=== PATIENT | male | born 1935 | race Caucasian/White ===

== ENCOUNTER 2023-07-02 21:19 | Inpatient (IN) | payer MEDICARE, SELFPAY ==
[2023-07-02 19:29] VITALS: BP 160/101
[2023-07-02 19:41] VITALS: BMI 22.5
--- NOTE | 2023-07-02 19:47 | ED.GENMED ---
History of Present Illness
General
Chief Complaint: Weakness
Source: patient and family
Time Seen by Provider: 07/02/23 19:40
Travel History
Have you had any contact with someone who has COVID-19?: No
Do you have any symptoms of coronavirus? Fever > 100 degrees, chills, cough, shortness of breath, sore throat, loss of taste or smell, muscle aches, or headache?: No
History of Present Illness
History of Present Illness:
88-year-old male presenting to the ER from home with EMS for gradually worsening weakness, fatigue, today did not eat or drink anything and family concern for the patient's wellbeing. Patient notes that over the last 24 hours he has also had very
loose stool. Daughter who is present with the patient notes that for a few days patient had also been taking some Mucinex for some congestion as well as a mild cough. Daughter reports she was sick with COVID about 4 weeks ago but all family
members were tested and everybody else was negative. Patient denies any known fevers, chills, rigors, nausea, vomiting, abdominal pain, other URI-like symptoms, urinary symptoms or any other concerns. Patient last had blood work here in May
with a creatinine of slightly less than 2 which was high for the patient. Follows with nephrology here but has not seen them in 'a while'.
Past History
Past History
ED Past Medical History: HTN (Diagnosed one week ago and started blood pressure medication but does not know which one), Renal failure and Other (Urinary retention with chronic Rodas catheter. Takes finasteride.)
ED Past Surgical History: Other
Social History
Tobacco: Non-smoker
Alcohol: Daily (1 or 2 beers)
Drug: None
Personal:
Living: with family
Review of Systems
Review of Systems
All Other Systems: ROS reviewed and negative except as documented in HPI and ROS
Phy Exam
Physical Exam
Physical Exam:
GENERAL: Alert , in no apparent distress at rest but very weak with any attempted movement and needs significant support to hold himself up in bed
EYE: clear conjunctiva b/l
HEAD: NCAT
ENT: o/p clr, dry mucous membranes, lips cracked
CARDIAC: Mildly tachycardic rate and rhythm
LUNGS: Clear breath sounds bilaterally, no acute respiratory distress, no wheezes/rales/rhonchi
ABDOMEN: Soft, without focal tenderness, no r/g, no cvat
NEUROLOGICAL: Alert and oriented
SKIN: Warm and dry, skin intact.
MUSCULOSKELETAL: No edema, well perfused.
PSYCH: Normal and appropriate interaction.
Scores
Heart Failure Risk
Heart Failure Risk Score: Not Applicable
Heart Score for Chest Pain Patients
STEMI patient?: Not applicable
Withdrawal Assessment of Alcohol
Withdrawal Assessment Completed?: Not applicable
Course
Orders/Labs/Results
Orders:
Orders
07/02/23 19:45
0.9% Sodium Chloride 1000 ml [Nss] 1,000 ml IV BOLUS
07/02/23 19:46
Electrocardiogram (*1) Urgent
Reason for Study: Fatigue / Weakness
EKG- Treatment ONCE
07/02/23 19:52
COVID-19 Antigen Urgent
Source: Nasal Swab
Complete Blood Count/With Diff Urgent
Comprehensive Metabolic Panel Urgent
Lactic Acid Q4H
Comment: CANCEL 2nd LACTIC ACID IF 1st LACTIC ACID IS LESS THAN 2
Magnesium Urgent
Troponin I Urgent
Blood Culture Q30M
DENILSON Source: Blood/Venous
Specimen Description:
Influenza A+B Rapid Molecular Urgent
DENILSON Source: Nasal Swab
Specimen Description:
07/02/23 20:09
Blood Culture Q30M
DENILSON Source: Blood/Venous
Specimen Description:
07/02/23 20:15
CR Chest Portable - 1 View Urgent
Comment:
Reason For Exam: weakness, mild cough, leukocytosis
Reason Study Needs to be Portable: Unable to Transport
07/02/23 20:20
0.9% Sodium Chloride 1000 ml [Nss] 1,100 ml IV NOW STA
07/02/23 20:32
Piperacillin/Tazo 4.5 Gram [Zosyn] 4.5 gram in 100 ml IV NOW
07/02/23 20:54
Rodas Catheter [Catheter- Indwelling] As Directed
Reason for insertion: Chronic Rodas on Admit
07/02/23 20:[address] Non Medication Order As Directed
Physician Order: rodas exchange
Above order entered?: Yes
07/02/23 21:06
Admit/Transfer Patient As Directed
Co-Sign Provider:
Level of Care: Inpatient admission
Assign to:: Telemetry
Physician / Group: Kareem/hospitalist
Diagnosis: MILTON on CKD
Reason for Telemetry: Arrhythmia
Date to Stop Telemetry: 07/05/23
Time to Stop Telemetry: 11:00
Reason for Hospitalization: MILTON on CKD
Expected length of stay greater than two midnights?: Yes
ELOS- Estimated Length of Stay in days: 3
I certify the patient meets the requirements for IP care: Yes
07/02/23 21:07
Code Status As Directed
Resuscitation Status: Full Code
07/02/23 21:36
Urinalysis Reflex To Culture Urgent
Date Specimen was Collected: 07/02/23
Time Specimen was Collected: 19:47
Urine Microscopic Reflex Cult Urgent
Urine Culture Urgent
DENILSON Source: U
Specimen Description:
Date Specimen was Collected: 07/02/23
Time Specimen was Collected: 19:47
0.9% Sodium Chloride 1000 ml [Nss] 1,000 ml IV 120 mls/hr
Acetaminophen [Tylenol] 650 mg PO Q4HPRN PRN
HydrALAZINE [Apresoline] 10 mg IV Q4HPRN PRN
07/02/23 21:36
NEPHROLOGY CONSULT Routine
Consulting Provider: Tamia Richards
Was physician already notified: Yes
C DIFF [C difficile Antigen & Toxins] Routine
DENILSON Source: Feces/Stool
Specimen Description:
MRSA Screen Routine
DENILSON Source: Nose
Specimen Description:
Norovirus by PCR Routine
DENILSON Source: Feces/Stool
Specimen Description:
Stool Culture Routine
DENILSON Source: Feces/Stool
Specimen Description:
Activity As Directed
Activity Level: As Tolerated
Vital Signs As Directed
Frequency: Per unit guidelines
DX Deep Vein Thrombosis Video Routine
07/02/23 22:00
MetroNIDAZOLE 500 MG/100 ML [Flagyl 500 mg] 100 ml IV Q8H
07/03/23 00:57
Lactic Acid Q4H
Comment: CANCEL 2nd LACTIC ACID IF 1st LACTIC ACID IS LESS THAN 2
07/03/23 02:15
CT Abd/pelvis Wo Iv Cont Urgent
Comment: Oral contrast only
Reason For Exam: Right lower quadrant abdominal pain
07/03/23 04:00
Cefepime HCl [Maxipime] 1,000 mg IV Q24H
07/03/23 07:44
Lactic Acid IN AM
07/03/23 08:00
Heparin 5,000 units SC Q12
07/03/23 09:00
US Renal With Bladder Routine
Reason For Exam: MILTON, decreased urine output
07/05/23 11:00
DC Protocol for Telemetry ONCE
Abnormal Lab Results
07/02/23
19:52
WBC 14.0 H 10^3/uL
(4.8-10.8)
MCHC 32.9 L g/dL
(33.0-37.0)
Abs Immat Gran (auto) 0.1 H 10^3/uL
(0-0.05)
Absolute Neuts (auto) 13.3 H 10^3/uL
(1.4-6.5)
Absolute Lymphs (auto) 0.2 L 10^3/uL
(1.2-3.4)
Neutrophils % 94.6 H %
(42.2-75.2)
Lymphocytes % 1.3 L %
(20.5-51.1)
Sodium 134 L mmol/L
(135-145)
Carbon Dioxide 16 L mmol/L
(22-30)
BUN 59 H mg/dl
(9-20)
Creatinine 4.2 H* mg/dL
(0.7-1.3)
Glucose 116 H mg/dl
(70-99)
Lactic Acid 4.3 H* mmol/L
(0.7-2.0)
Total Bilirubin 1.6 H mg/dl
(0.2-1.3)
Troponin I 0.048 H* ng/ml
Total Protein 5.9 L g/dl
(6.3-8.2)
Albumin 3.3 L g/dl
(3.5-5.0)
07/02/23 19:52
07/02/23 19:52
Vital Signs
Initial and Last Documented VS:
Initial Vital Signs
Temp Pulse Resp BP Pulse Ox
97.5 F 109 20 160/101 94
07/02/23 19:29 07/02/23 19:29 07/02/23 19:29 07/02/23 19:29 07/02/23 19:29
Last Documented Vital Signs
Temp Pulse Resp BP Pulse Ox
97.7 F 74 18 95/61 92
07/03/23 15:20 07/03/23 15:20 07/03/23 15:20 07/03/23 15:20 07/03/23 15:20
MDM/Problems Addressed
Differential Diagnosis Includes:
Electrolyte disturbance, anemia, viral syndrome, worsening renal function
MDM/Problems Addressed:
88-year-old male presenting the emergency department for gradually worsening weakness over the last few days, today started to have some very loose stool, few days of URI-like symptoms with mild cough and nasal congestion. Arrives to the emergency
department little bit hypertensive but tachycardic. Oxygen saturation between 93 and 94% on room air but no obvious respiratory distress. Will check labs, urine, COVID swab. 1 L IV fluids ordered as patient has not eaten or drank anything in exam
seems to be consistent with some component of dehydration. I do anticipate admission.
Chronic conditions affecting care: Kidney disease
*Pulse Oximetry
Patient hypoxic: no
*EKG
Interpreted by ED Provider?: Yes
Comparison EKG: no changes
Heart Rate: 96
Rate: normal
Rhythm: sinus
QRS Pattern: right bundle branch block
Ischemia: no ischemia
*Pacu Rn Interpretation
Rate: tachycardiac
Rhythm: sinus
*Critical Care Note
Total Time (30-74mins, 75-104mins- exclusive of procedures): 30
comment:
Critical care statement: A total of 30 minutes of critical care time was provided for this patient. This includes management of unstable vital signs, evaluation of the patient at bedside, reviewing the patient's pertinent medical records, discussion
with consultants, review of old EKGs and review of pertinent medical records. This time with separate from time utilized to perform the aforementioned documented procedures
Data Reviewed
Review of Other/Old Records Reveals: Labs
Source: patient and family
Patient Management
Discussion with other providers: Hospitalist and Social Services Director
Escalation/DeEscalation of care consider admission/obs:
Patient's labs returning and are significantly abnormal. He is a leukocytosis of 14,000 with a leftward shift. Bicarb 16, BUN 59 and creatinine 4.2. Lactic acid 4.3. Troponin is mildly bumped but I suspect this is due to patient's renal
function. Sepsis fluid bolus was added to the additional 1 L fluids patient had already been given. Broad-spectrum vancomycin and Zosyn were ordered for possible infectious etiology. Chest x-ray was reviewed and there does not appear to be any
obvious infiltrates or consolidations. Hospitalist team and nephrology were notified. Hospitalist accepts for continued evaluation and treatment.
ED Attending Note
-
Portions of this chart may have been created with voice recognition software.� Occasional wrong word or��sound alike� substitutions may have occurred due to the inherent limitations of voice recognition software.
Discharge Plan
Departure
Patient Disposition: Admit
Date of Disposition: 07/02/23
Time of Disposition: 20:35
Presentation/result/management discussed w/ accepting MD/DO: Hospitalist
Discharge Problem:
Sepsis, MILTON (acute kidney injury), Generalized weakness
Interventions
Interventions:
*Risk Screen - Suicide Last Done: 07/02/23 22:17
*General Assessment Last Done: 07/02/23 19:29
*Neglect/Abuse Screening Last Done: 07/02/23 19:29
ED- Fall Risk Assessment Last Done: 07/02/23 22:12
*ED COVID-19 Vaccine History Last Done: 07/02/23 22:17
*Nursing Disposition Last Done: 07/02/23 22:12
ED- Cardiac Assessment Last Done: 07/02/23 19:42
ED- Neurological Assessment Last Done: 07/02/23 19:42
ED- Pulmonary Assessment Last Done: 07/02/23 19:42
Discharge Date and Time
Discharge Date/Time: 07/02/23 22:14
[2023-07-02 20:00] VITALS: BP 109/70
[2023-07-02] MEDS: NSS 1000 IV ×2 (20:00→21:59)
[2023-07-02 20:07] LABS: % Basophils 0.2 % (0-2); % Immature Granulocytes 0.5 % (0-0.5); % Lymphocytes 1.3 % (20.5-51.1); % Monocytes 3.4 % (1.7-9.3); % Neutrophils 94.6 % (42.2-75.2); Absolute Immature Granulocytes 0.1 10^3/uL (0-0.05); Absolute Lymphocytes 0.2 10^3/uL (1.2-3.4); Absolute Monocytes 0.5 10^3/uL (0.1-0.6); Absolute Neutrophils 13.3 10^3/uL (1.4-6.5); Hematocrit 45.6 % (39.0-52.0); Mean Corp Hgb Conc. 32.9 g/dL (33.0-37.0); Mean Corpuscular Hgb 29.9 pg (27.0-31.0); Nucleated Red Blood Cells % 0 % (-); Platelet Count 174 10^3/uL (130-400); Red Blood Cell Count 5.01 10^6/uL (4.70-6.10); Red Cell Dist. Width 14.3 % (11.5-14.5)
[2023-07-02 20:20] LABS: Lactic Acid 4.3 mmol/L (0.7-2.0)
[2023-07-02 20:23] LABS: ALT (SGPT) 38 U/L (0-50); AST (SGOT) 35 U/L (17-59); Albumin 3.3 g/dl (3.5-5.0); Alkaline Phosphatase 63 U/L (38-126); Blood Urea Nitrogen 59 mg/dl (9-20); Calcium 8.7 mg/dl (8.4-10.2); Carbon Dioxide 16 mmol/L (22-30); Chloride 105 mmol/L (98-107); Estimated Creatinine Clearance 12 ml/min; Glucose 116 mg/dl (70-99); Potassium 4.9 mmol/L (3.5-5.1); Sodium 134 mmol/L (135-145); Total Bilirubin 1.6 mg/dl (0.2-1.3); Total Protein 5.9 g/dl (6.3-8.2); eGFR 12.86
[2023-07-02 20:32] LABS: Troponin I 0.048 ng/ml
[2023-07-02 20:34] LABS: COVID-19 Antigen Negative (Negative)
--- NOTE | 2023-07-02 20:36 | HPS.HSE ---
Addendum entered and electronically signed by Rosalina Serna MD 07/02/23 22:32:
Will start clear liquid diet instead of low-cholesterol due to patient's right lower quadrant abdominal pain.
Pending CT abdomen pelvis with oral contrast
Original Note:
Family Physician
-
Family Physician:
Chief Complaint
-
generalized weakness, poor p.o. intake, and clinical dehydration.
History of Present Illness
HPI: 88-year-old male PMH HTN, CKD, chronic Flanagan for urinary retention, p/w generalized weakness, poor p.o. intake, and clinical dehydration.
Apparently he also complained of mild cough/congestion for several days. He has noticed diarrhea for the past 2 days, and right upper quadrant abdominal pain on palpation.
The patient has chronic Flanagan on admission.
He denies to nausea/vomiting, fever/chills, chest pain/shortness of breath, etc.
Patient's last blood work in May noted SCr at 1.9.�He follows with nephrology but has not seen them in 'a while'.
Medical History
Past Medical History
Past Medical History: Reports Other
Additional Past Medical History:
HTN, CKD, chronic Flanagan for urinary retention
Past Surgical History: Reports Other
Additional Past Surgical History:
hernia surgery in distant past
Social History
Tobacco: Non-smoker
Alcohol: Occasional (1-2 beer every night)
Living: With Family (daughter )
Family History
Family History: Not pertinent
Allergies / Home Medications
Allergies reflects when Allergies were last updated in [facility].
Home Medications with original date entered in [facility]
Allergy/Medication List:
Allergies
Allergy/AdvReac Type Severity Reaction Status Date / Time
NKA - No Known Allergies Allergy Unknown Unknown Uncoded 07/02/23 20:40
Home Medications
dextromethorphan-guaifenesin ER 60 mg-1,200 mg tab,extend release,12hr (Mucinex DM) 1 tab PO DAILYPRN PRN congestion 07/02/23
Review of Systems
-
Constitutional: Reports See HPI and Fatigue; Denies Fever
Abdomen/GI: Reports See HPI, Abdominal Pain (RLQ) and Diarrhea
: Reports Flanagan
Physical Exam
Vital Signs
Vital Signs
Temp Pulse Resp BP Pulse Ox
36.4 C 112 28 160/101 93
07/02/23 19:29 07/02/23 19:45 07/02/23 19:45 07/02/23 19:29 07/02/23 19:45
Physical Exam
General: Well Developed, Well Nourished, No Apparent Distress, Comfortable and Conversant
HEENT: NormoCephalic, Moist mucous membranes and Atraumatic
Respiratory: Clear and Non Labored Respirations; No Accessory Resp Muscle Use
Cardiac: S1/S2 and Regular Rhythm; No Murmur or Rub
GI: Soft, Tender (RLQ) and Distended; No Organomegaly
Rectal: Deferred by Provider
Musculoskeletal: No Clubbing, No Cyanosis and No Edema
Skin: No Rash
Neuro: Awake
Psych: Calm and Intact Judgment/Insight
Laboratory Results
-
07/02/23 19:52
07/02/23 19:52
Laboratory Results
Lactic Acid 4.3 mmol/L (0.7-2.0) H* 07/02/23 19:52
Total Bilirubin 1.6 mg/dl (0.2-1.3) H 07/02/23 19:52
AST 35 U/L (17-59) 07/02/23 19:52
ALT 38 U/L (0-50) 07/02/23 19:52
Alkaline Phosphatase 63 U/L (38-126) 07/02/23 19:52
Troponin I 0.048 ng/ml H* 07/02/23 19:52
Data Reviewed
-
Lab Data: Labs Reviewed by me
Impression/Plan
-
HPI: 88-year-old male PMH HTN, CKD, chronic Flanagan for urinary retention, p/w generalized weakness, poor p.o. intake, and clinical dehydration.
Apparently he also complained of mild cough/congestion for several days. He has noticed diarrhea for the past 2 days, and right upper quadrant abdominal pain on palpation.
The patient has chronic Flanagan on admission.
He denies to nausea/vomiting, fever/chills, chest pain/shortness of breath, etc.
Patient's last blood work in May noted SCr at 1.9.�He follows with nephrology but has not seen them in 'a while'.
He was admitted for presumed sepsis and MILTON.
Flanagan to be exchanged in ER.
A/P:
# generalized weakness, anorexia and clinical dehydration with prerenal MILTON
# CKD stage 4
# Chronic Flanagan on admission for urinary retention
SCr 4.3 from baseline ~1.9
s/p 2100cc NSS bolus, cont maintenance IVF
check kidney US
Flanagan to be exchanged in ER
Renal CS
# Lactic acidosis present on admission, with concern for sepsis POA (unclear source)
# RLQ Abd pain
Check CT AP with oral contrast only (No IV contrast)
Follow CXR formal report, appears NAD on my view
Follow blood cultures
Check stool culture, C. difficile, norovirus for reported diarrhea prior to admission
follow UA reflex culture
Flanagan to be exchanged in ER
Check MRSA screen
Status post Vanco Zosyn in ER, continue cefepime and add Flagyl
Follow repeat lactic acid level
# Essential hypertension
Currently hypotensive
IV hydralazine as needed
DVT prophylaxis: Heparin subcu
Full code
[2023-07-02] MEDS: NSS 1000 ML IV (20:47)
[2023-07-02 21:00] VITALS: BP 119/47
[2023-07-02] MEDS: ZOSYN 100 IV (21:00)
[2023-07-02 21:45] LABS: Urine Albumin Trace (Neg - Trace); Urine Bilirubin Negative (Negative); Urine Character Slightly Cloudy (Clear); Urine Color Yellow; Urine Glucose Negative (Negative); Urine Ketone Negative (Negative); Urine Leukocyte 2+ (Negative); Urine Nitrite Negative (Negative); Urine Occult Blood 3+ (Negative); Urine Urobilinogen Negative (Neg - 1+)
[2023-07-02 21:55] LABS: Urine Bacteria Many (Negative); Urine Triple Phosphate Crystal Present
[2023-07-02 22:00] VITALS: BP 97/61
[2023-07-02 22:41] VITALS: BP 132/60
[2023-07-02 22:44] VITALS: BMI 21.3
[2023-07-02] MEDS: VANCOCIN 300 ML IV (23:50)
[2023-07-02] MEDS: VANCOCIN 300 MG IV (23:50)
[2023-07-03] VITALS (8 sets, daily range): BP systolic 87–112; BP diastolic 55–79
[2023-07-03] MEDS: OMNIPAQUE 50 ML PO
[2023-07-03 01:22] LABS: Lactic Acid 2.1 mmol/L (0.7-2.0)
[2023-07-03] MEDS: FLAGYL 500 MG 100 IV ×3 (02:12→17:44)
[2023-07-03] MEDS: MAXIPIME 1000 MG IV (04:00)
[2023-07-03] MEDS: STERILE WATER FOR INJECTION 10 ML IV (04:01)
--- NOTE | 2023-07-03 04:47 | PTCARENOTE ---
Pt admitted to the unit from ED. Pt transferred from the stretcher to the bed with assist x 1 . Patient scooted over Patient is AAXO3. VS: T:97.4, hr 98, BP 112/62, resps 20 93% on RA . Pt oriented to room with call barajas in reach. Plan of care
ongoing.
--- NOTE | 2023-07-03 04:50 | PTCARENOTE ---
1200 Patient started to drinking for CT scan. Patient tolerating well. [address] SCAN. Patient tolerated well. 0220 Patient back to room 420. Patient oriented back to room . Will continue to monitor patient .
[2023-07-03] MEDS: HEPARIN 5000 UNITS SC (08:07)
[2023-07-03] MEDS: NSS 1000 IV (08:08)
[2023-07-03 08:12] LABS: Lactic Acid 1.1 mmol/L (0.7-2.0)
[2023-07-03 08:48] LABS: Hematocrit 33.4 % (39.0-52.0); Hemoglobin 11.4 g/dL (13.0-18.0); Mean Corp Hgb Conc. 34.1 g/dL (33.0-37.0); Mean Corpuscular Hgb 30.3 pg (27.0-31.0); Mean Corpuscular Volume 88.8 fL (80.0-94.0); Mean Platelet Volume 10.1 fL (7.4-10.4); Platelet Count 120 10^3/uL (130-400); Red Blood Cell Count 3.76 10^6/uL (4.70-6.10); Red Cell Dist. Width 14.3 % (11.5-14.5); White Blood Cell Count 8.5 10^3/uL (4.8-10.8)
--- NOTE | 2023-07-03 09:39 | W.PN.HOSP.TC ---
Today's Communication/Plan
-
Transfer to IVU
Cardiology consult
Urology consult
Rate control
Continue antibiotics
Assessment / Plan
Assessment / Plan
Gen-AAOx3, NAD
HEENT-NC, AT, anicteric, clear oral mm
Neck-supple
CV-irregular, tachy, no murmurs
Lungs-clear B/L
Abd-soft, NT, ND
Ext-no edema
Musculoskeletal-no cyanosis, clubbing
Skin-warm and dry
Neuro-grossly non-focal
Psych-calm, cooperative
New diagnosis rapid atrial fibrillation -hypotensive currently. Will give a small IV fluid bolus, IV metoprolol, start oral metoprolol, consult cardiology. Transfer to IVU. Check TSH.
MILTON on CKD 3b - likely due to sepsis. Creatinine coming down, 3.4 today. Baseline appears to be around 1.9.
Sepsis -possibly due to urinary source. Cultures pending. Continue empiric antibiotics. Blood cultures show gram-negative bacilli. Leukocytosis improved. Lactic acidosis improved.
CT scan does show moderate to severe hydronephrosis left greater than right kidneys. Moderate perinephric stranding bilaterally. No intrarenal calcifications noted. Severe prostatic enlargement noted. Abnormal urinary bladder wall thickening.
Will consult urology.
Elevated troponin -likely non-SC troponin elevation due to sepsis. Recheck troponin today. Patient has no symptoms.
Hyponatremia -sodium stable at 134. Possibly hypovolemic in nature. Check urine studies.
Acute thrombocytopenia - possibly due to sepsis. Monitor for now.
Essential hypertension -currently hypotensive.
Chronic urinary retention -chronic Flanagan catheter
Dementia -unknown type.
Full code
Daughter Felicitas updated on the phone. All questions answered.
Anticipated Discharge: > 48 hours
Subjective/Interval History
-
Date of Service: July 03, 2023
Patient seen and examined. Feels fine. No complaints.
Objective Data
-
Labs:
Laboratory Results
07/03/23 07/03/23
07:45 08:24
WBC Cancelled 8.5
Hgb Cancelled 11.4 L D
Hct Cancelled 33.4 L
Plt Count Cancelled 120 L D
Sodium Cancelled Pending
Potassium Cancelled Pending
Chloride Cancelled Pending
Carbon Dioxide Cancelled Pending
BUN Cancelled Pending
Creatinine Cancelled Pending
Glucose Cancelled Pending
Calcium Cancelled Pending
Vital Signs:
Vital Signs
Temp Pulse Resp BP Pulse Ox
98.8 F 92 24 99/59 100
07/03/23 07:57 07/03/23 07:57 07/03/23 07:57 07/03/23 07:57 07/03/23 07:57
I&O
07/02/23 07/03/23 07/04/23
06:59 06:59 06:59
Output Total 500 / 500
Balance -500 / -500
Review of Systems
-
History Source: Patient
All other systems: Reviewed and negative
[2023-07-03 09:45] LABS: Blood Urea Nitrogen 67 mg/dl (9-20); Calcium 7.5 mg/dl (8.4-10.2); Carbon Dioxide 15 mmol/L (22-30); Chloride 108 mmol/L (98-107); Estimated Creatinine Clearance 14 ml/min; Glucose 93 mg/dl (70-99); Magnesium 1.7 mg/dl (1.6-2.3); Potassium 4.1 mmol/L (3.5-5.1); Sodium 134 mmol/L (135-145); eGFR 16.57
[2023-07-03] MEDS: NSS 250 IV (09:53)
[2023-07-03] MEDS: LOPRESSOR 5 MG IV (09:54)
[2023-07-03] MEDS: LOPRESSOR 25 MG PO ×2 (10:10→20:20)
--- NOTE | 2023-07-03 10:29 | CON.CAR ---
Addendum entered and electronically signed by Sunni Schuster MD 07/03/23 13:46:
I saw and examined the patient.
The END FRAZER's note was reviewed and I agree with the note.
Comment: 88-year-old man with hypertension, CKD and chronic Flanagan presented with weakness and diarrhea. He has been found to have gram-negative rods in his blood and being treated for a UTI. He was noted to go into Afib with RVR and relative
hypotension. He has no sense of arrhythmia, cp or sob. He has an irreg rate and rhythm with rapid rates, lungs CTA. Ext wwp. Given relative hypotension and clear onset, will start amiodarone for rhtythm control. Hgb drop noted will heme check
prudence, as may be hemodilution with IVF. Otherwise, would recommend anticoagulation for age and htn. Meanwhile when rates improved would recommend echo.
Will follow.
Original Note:
Consultation
Consultation Request
Date/Time Consultation Requested: 07/03/23 9:40a
Date/Time Consultation Performed: 07/03/23 10:05a
Requesting Provider: Dr. Ireland
Performing Provider: ROSSI Ruelas for Dr. Schuster
Reason for Consultation: new Afib
Medical History
-
Chief Complaint: RUQ pain/diarrhea
History of Present Illness:
Mr. Watts is an 88 yo male HTN, CKD, and chronic Flanagan for urinary retention, who presents to the ER with c/o weakness, diarrhea and RUQ pain with palpation. He lives with his daughter and he denies any complaints. He states not seeing his doctor
in probably 5-10 years. He is admitted to the hospitalist with UTI sepsis and MILTON with creatinine 4.2. We are consulted for new onset rapid Afib that began 07/03/23. He is asymptomatic and unaware of his irregular heart rate. EKG with Afib with
RVR 141 bpm, RBBB. Today he also has mild hypotension and is currently receiving IVF and IV Lopressor for rapid rates.
Past Medical History
Past Medical History: Other (as above)
Social History
Tobacco: Non-Smoker
Alcohol: Daily
Personal: (his lives in a alf)
Living: With Family (daughter)
Employment: Retired
Family History
Family History: Reviewed & Not Pertinent
Allergies / Home Medications
Allergy/AdvReac Type Severity Reaction Status Date / Time
No Known Allergies Allergy Unverified 07/02/23 21:56
Medication Instructions Recorded Confirmed Type
dextromethorphan-guaifenesin ER 60 1 tab PO DAILYPRN PRN congestion 07/02/23 07/02/23 History
mg-1,200 mg tab,extend
release,12hr (Mucinex DM)
Review of Systems
-
History Source: Patient
All other systems: Negative unless noted
Physical Exam
Vital Signs
Temp Pulse Resp BP Pulse Ox
98.8 F 160 18 93/59 100
07/03/23 07:57 07/03/23 09:35 07/03/23 09:35 07/03/23 09:35 07/03/23 07:57
Lab Results
07/03/23 08:24
07/03/23 08:24
Troponin I 0.048 ng/ml H* 07/02/23 19:52
Physical Exam
General: No Apparent Distress and Other (elderly, frail)
HEENT: Normocephalic
Respiratory: Clear and Non Labored Respirations
Cardiac: S1/S2 and Irregular Rhythm (tachycardia)
Breast: Deferred by me
GI: Soft, Non Tender, Non Distended and Normal Bowel Sounds
Rectal: Deferred by Provider
Genito-urinary: No Costovertebral Tender
Musculoskeletal: No Clubbing, No Cyanosis and No Edema
Skin: Warm and Dry
Neuro: AO x 3
Hematologic/Lymphatic: No Lymphadenopathy
Psych: Calm
Impression / Plan
-
Afib - new onset, rapid ventricular response.
- IV Lopressor just given for rate control.
- mild hypotension receiving IVF.
- unaware of irregular heart rhythm, denies symptoms.
- start IV Amiodarone bolus and drip.
- [id number] score is 3 (age, HTN), but with new anemia (4gram drop in hgb overnight), will hold off on OAC, check stools/follow CBC.
- check echo when heart rates improve.
Acute non-ischemic myocardial injury - troponin 0.048, 0.127.
- in the setting of acute MILTON, acute sepsis UTI.
- denies angina.
- check an echo when heart rates improve.
Sepsis UTI - acute.
- per hospitalist.
- chronic Flanagan for urinary retention.
MILTON - creatinine 4.2 on admit.
- renal u/s ordered.
- nephrology consulted.
HTN - not on meds at home.
- currently with soft BP and receiving IVF with rate slowing meds.
- continue to monitor.
Anemia/thrombocytopenia - new.
- 4 gram drop in hgb overnight.
- heme test stool.
- follow cbc.
Data Reviewed
-
EKG: Tracing Personally Visualized and interpreted (Afib with RVR 141 bpm, RBBB)
Radiology: Image Personally Visualized and interpreted (cxr: NAD)
CT Scan: Report Reviewed by me (abd/pelvis: b/l pleural effusions R>L, 7mm nodule right lung base, b/l hydronephrosis L>R)
Labs: Labs Reviewed by me
[2023-07-03] MEDS: CORDARONE 103 MG IV (10:57)
--- NOTE | 2023-07-03 11:01 | W.CON.NEPH ---
Consultation
-
Date/Time Consultation Requested: 07/02PM 21:36
Date/Time Consultation Performed: 07/03 11:05AM
Requesting Provider: Dr. Serna
Performing Provider: Tamia Richards
Reason for Consultation: MILTON on CKD
Medical History
-
Chief Complaint: MILTON
History of Present Illness:
Mr. Watts is an 88 YOM with PMH of HTN, CKD, urinary retention (with chronic rodas in place) who presents to the hospital for generalized weakness, poor PO intake and c/f dehydration. The patient is accompanied by his daughter who acts as historian
as patient has significant dementia. She states that he has not been feeling like his normal self for the past few days. States he is more tired, moving less and eating very little. The patient states that he had a mild cough/congestion for several
days. He has also noted diarrhea, RUQ abdominal pain. CT scan done showing moderate to severe hydronephrosis left greater than right.
Cr baseline of around 2. Patient of Dr. Yu, last seen 2020. 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
Past Medical History
HTN
CKD
intermittent hyponatremia
chronic Rodas for urinary retention
Past Medical History: HTN
Past Surgical History: Other (hernia surgery)
Social History
Tobacco: Non-Smoker
Alcohol: Daily (daughter states he drinks 4-5 beers/day and sometimes more)
Drug: None
Living: With Family
Family History
Family History: Not Pertinent
Allergies / Home Medications
Allergy/AdvReac Type Severity Reaction Status Date / Time
No Known Allergies Allergy Unverified 07/02/23 21:56
Medication Instructions Recorded Confirmed Type
dextromethorphan-guaifenesin ER 60 1 tab PO DAILYPRN PRN congestion 07/02/23 07/02/23 History
mg-1,200 mg tab,extend
release,12hr (Mucinex DM)
Review of Systems
-
Unable to obtain full review of systems at this time due to: Dementia
History Source: Patient and Family
All other systems: Negative unless noted
Constitutional: Fatigue
EENT: No Symptoms
Respiratory: No Symptoms
Cardiac: Chest Pain and Palpitations
Abdomen/GI: Abdominal Pain
: Other (rodas not changed for12 months)
Musculoskeletal: No Symptoms
Skin: No Symptoms
Neurological: Weakness
Endocrine: No Symptoms
Hematologic/Lymphatic: No Symptoms
Physical Exam
Vital Signs
Vital Signs
Temp Pulse Resp BP Pulse Ox
98.8 F 160 18 93/59 94
07/03/23 07:57 07/03/23 09:35 07/03/23 09:35 07/03/23 09:35 07/03/23 08:30
Lab Results
WBC 8.5 10^3/uL (4.8-10.8) 07/03/23 08:24
RBC 3.76 10^6/uL (4.70-6.10) L 07/03/23 08:24
Hgb 11.4 g/dL (13.0-18.0) L D 07/03/23 08:24
Hct 33.4 % (39.0-52.0) L 07/03/23 08:24
Plt Count 120 10^3/uL (130-400) L D 07/03/23 08:24
Sodium 134 mmol/L (135-145) L 07/03/23 08:24
Potassium 4.1 mmol/L (3.5-5.1) 07/03/23 08:24
Chloride 108 mmol/L (98-107) H 07/03/23 08:24
Carbon Dioxide 15 mmol/L (22-30) L 07/03/23 08:24
BUN 67 mg/dl (9-20) H 07/03/23 08:24
Creatinine 3.4 mg/dL (0.7-1.3) H 07/03/23 08:24
eGFR 16.57 07/03/23 08:24
Glucose 93 mg/dl (70-99) 07/03/23 08:24
Calcium 7.5 mg/dl (8.4-10.2) L 07/03/23 08:24
Albumin 3.3 g/dl (3.5-5.0) L 07/02/23 19:52
Physical Exam
General: Awake and Alert
HEENT: EOMI, Anicteric and Ear/Nose Intact
Respiratory: Wheezes
Cardiac: S1/S2
Breast: N/A
Abdomen: Soft and Other (tender to palpation in RUQ and RLQ)
Rectal: Deferred by Provider
Genito-urinary: No Costovertebral Tender and Clear Urine
Musculoskeletal: No Edema
Skin: No Rash, Warm and Dry
Neuro: Nonfocal/Grossly Intact
Hematologic/Lymphatic: No Cervical Lymphadenopathy
Psych: Appropriate
Assessment/Plan
-
Assessment:
MILTON on CKD (bl Cr 2)
NAGMA (previously HAGMA from [place])
HTN (now hypotensive)
chronic rodas for urinary retention
hydronephrosis
Lactic acidosis (resolved)
Sepsis unknown source
Plan:
- MILTON likely ATN from sepsis but cannot rule out post renal disease
- urology consult for worsening hydronephrosis and missed Rodas exchanges pending
- please continue fluid resuscitation as Cr improved from 4.2 --> 3.4 with fluids
- NAGMA persists, will initiate Na HCO3 fluids to assist
- obtain urine Na, urine Cl and urine K to assess if RTA (chronic rodas) vs. GI losses
- initiated NaHCO3 gtt at 100cc/hr
- chronic hyponatremia --> could be a component of tea and toast + beer potomania. monitor for now
Data Reviewed
-
Radiology: Image Personally Visualized and interpreted
CT Scan: Report Reviewed by me
Labs: Labs Reviewed by me
Old Records: Reviewed
[2023-07-03 11:06] LABS: Troponin I 0.127 ng/ml
[2023-07-03] MEDS: CORDARONE 518 MG IV (11:35)
--- NOTE | 2023-07-03 12:05 | CM ---
Patient seen bedside.
IA completed.
Patient lives with daughter and 3 grandchildren in a multi level home with 2 steps to enter.
Patient independent prior to admission without AD.
Patient does not drive.
VN in the past, unsure which agency.
Patient denies home care needs at this time.
PCP: dr Sharma
Pharmacy: [facility]
Plan: Home no needs anticipated, will continue to follow.
--- NOTE | 2023-07-03 12:13 | CON.MD ---
Consultation - Medical
-
see dictated note
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
rodas placed
did have cysto- bph and trabeculations- no tumor
discussed surgery- pt and family elected rodas
was exchanged monthly- but pt not seen since late 2021 in our office and he does not think the rodas has been changed since!
admitted with weakness/abd pain
cr up from baseline fo 2 to 4
new rodas was placed- adequate output of sonia urine
ct shows bilateral hydro down to bladder- no obvious mass- improved from study in 2019
plan
spoke to pt and daughter
continue rodas
ucx
track cr level- hopefully will improve with new rodas
start proscar
if cr fails to improve- would need percs if this intervention is desired
will follow
at time fo discharge will need outpt f/u to resume regular rodas exchanges
[2023-07-03] MEDS: SODIUM BICARBONATE 1150 MEQ IV (12:59)
[2023-07-03 13:28] LABS: Urine Potassium 53.4 mmol/L (30-90); Urine Sodium 32 mmol/L (30-90)
[2023-07-03 16:05] LABS: Hematocrit 38.4 % (39.0-52.0); Mean Corp Hgb Conc. 33.9 g/dL (33.0-37.0); Mean Corpuscular Hgb 30.1 pg (27.0-31.0); Mean Corpuscular Volume 88.9 fL (80.0-94.0); Platelet Count 150 10^3/uL (130-400); Red Blood Cell Count 4.32 10^6/uL (4.70-6.10); Red Cell Dist. Width 14.4 % (11.5-14.5); White Blood Cell Count 11.7 10^3/uL (4.8-10.8)
[2023-07-03 16:31] LABS: Troponin I 0.418 ng/ml
[2023-07-03 18:07] LABS: APTT 34.8 Sec (23.4-35.0)
[2023-07-03] MEDS: HEPARIN 4000 UNITS IV (20:20)
[2023-07-03] MEDS: HEPARIN 25000 UNITS/250 ML IV (20:21)
[2023-07-04] VITALS (11 sets, daily range): BP systolic 83–145; BP diastolic 46–125; BMI 21.3
--- NOTE | 2023-07-04 01:29 | PTCARENOTE ---
Received tsf from 4th floor at approx 18:50 into room 2243. Patient ambulated from stretcher to bed w/ standby assist. Tele monitor applied patient SR w/ BBBC, and occasional PACs. HR in the 60-70's at rest. During alarm review patient approximately
converted at 14:46 on the 4th floor. This RN obtained EKG which confirmed SR w/ right BBB. Patient oriented to self, and pleasantly confused/ forgetful at times. This RN reoriented patient multiple times to place and situation. Bed alarm active. IV
heparin gtt initiated, and currently infusing at 8ml/hr. Next ptt due at 02:30. IV Amiodarone gtt infusing at 16.7ml/hr. Left forearm IV site infiltrated, IV removed by RN. Old IV site marked to monitor. New IV site placed by this RN. VAT notified.
Patient had an episode of unmeasurable diarrhea. Sample collected and sent to lab. Stool heme positive. Flanagan draining sonia color urine w/ sediment. Call barajas within reach.
[2023-07-04] MEDS: SODIUM BICARBONATE 1150 MEQ IV ×3 (02:40→22:30)
[2023-07-04] MEDS: FLAGYL 500 MG 100 IV (02:40)
[2023-07-04 02:47] LABS: % Basophils 0.2 % (0-2); % Eosinophils 0.4 % (0-6); % Immature Granulocytes 0.5 % (0-0.5); % Lymphocytes 4.2 % (20.5-51.1); % Monocytes 3.9 % (1.7-9.3); % Neutrophils 90.8 % (42.2-75.2); Absolute Lymphocytes 0.4 10^3/uL (1.2-3.4); Absolute Monocytes 0.3 10^3/uL (0.1-0.6); Absolute Neutrophils 7.7 10^3/uL (1.4-6.5); Hematocrit 31.4 % (39.0-52.0); Hemoglobin 11.2 g/dL (13.0-18.0); Mean Corp Hgb Conc. 35.7 g/dL (33.0-37.0); Mean Corpuscular Hgb 30.3 pg (27.0-31.0); Mean Corpuscular Volume 84.9 fL (80.0-94.0); Nucleated Red Blood Cells % 0 % (-); Platelet Count 125 10^3/uL (130-400); White Blood Cell Count 8.5 10^3/uL (4.8-10.8)
[2023-07-04 02:58] LABS: APTT 39.9 Sec (23.4-35.0)
[2023-07-04 03:10] LABS: Troponin I 0.497 ng/ml
--- NOTE | 2023-07-04 03:21 | PTCARENOTE ---
Dayron RICHEY made aware of pts heme positive diarrhea. Hgb this AM 11.2. Patsy RICHEY aware of IV heparin gtt currently infusing. At approx 03:08 patient went back into Afib for 1 min, spontaneously CV, and then back into afib at 03:10. HR in
the 90-100's. Pt denies any chest pain. Call barajas in reach, bed alarm active.
[2023-07-04 03:24] LABS: ALT (SGPT) 12 U/L (0-50); AST (SGOT) 26 U/L (17-59); Albumin 1.9 g/dl (3.5-5.0); Alkaline Phosphatase 40 U/L (38-126); Blood Urea Nitrogen 72 mg/dl (9-20); Calcium 7.1 mg/dl (8.4-10.2); Carbon Dioxide 20 mmol/L (22-30); Chloride 104 mmol/L (98-107); Estimated Creatinine Clearance 17 ml/min; Glucose 104 mg/dl (70-99); Magnesium 1.8 mg/dl (1.6-2.3); Potassium 3.5 mmol/L (3.5-5.1); Sodium 132 mmol/L (135-145); Total Bilirubin 1.1 mg/dl (0.2-1.3); Total Protein 3.9 g/dl (6.3-8.2); eGFR 20.91
[2023-07-04] MEDS: MAXIPIME 1000 MG IV (04:49)
[2023-07-04] MEDS: STERILE WATER FOR INJECTION 10 ML IV (04:49)
--- NOTE | 2023-07-04 06:07 | W.PN.URO.CBU ---
Today's Communication / Plan
-
continue rodas and proscar
await ucx
Assessment / Plan
-
chronic urinary retention with bilateral hydro
acute on chronic renal insuff
suspected UTI- bacteremia
pt stable
cr declining toward baseline with new rodas
no sig hematuria- but is at risk with heparin drip- cardiology note originally stated no blood thinners- hgb has dropped- they will evaluate later today
continue proscar
await final cx results
eventual plan will be to resume regular outpt rodas exchanges
will follow
Diagnosis
-
Date of Service: July 04, 2023
-
Patient Diagnosis:
chronic urinary retention
ARF- likely post- obstrucive
bacteremia
Subjective
-
pt resting comfortably
urine sonia- good output
ucx pending- blood cx + for klebsiella
cr declining
now is on heparin drip- hgb has dropped
Objective
-
Vital Signs
Temp Pulse Resp BP Pulse Ox
98.3 F 61 22 92/46 96
07/04/23 02:38 07/04/23 02:00 07/04/23 02:38 07/04/23 02:37 07/04/23 02:38
Intake and Output
07/02/23 07/03/23 07/04/23
06:59 06:59 06:59
Intake Total 2556.4 / 2556.4
Output Total 500 / 500 650 / 650
Balance -500 / -500 1906.4 / 1906.4
Intake:
Oral fluids 960 / 960
IV fluids (Total) 1496.4 / 1496.4
Amiodarone 200.4 / 200.4
Heparin 96 / 96
Sterile Water For Injection 1200 / 1200
1000 ml 1,000 ml @ 100 mls/hr
IV .[id number] BAKARI with Sodium
Bicarbonate 150 Meq Rx#:
[id number]
IV piggybacks 100 / 100
Output:
Urine, Rodas 500 / 500 650 / 650
Other:
Number of unmeasured liquid
stools
Rectum 1
Laboratory Results
07/04/23 02:34
07/04/23 02:34
Review of Systems
-
Constitutional: Fatigue
Respiratory: No Symptoms
Cardiac: No Symptoms
Abdomen/GI: No Symptoms
Physical Exam
-
General - no acute distress
Abdomen - soft, non-tender
Genitalia - rodas in place
--- NOTE | 2023-07-04 07:39 | W.PN.HOSP.TC ---
Addendum entered and electronically signed by Zay Ireland DO 07/04/23 12:09:
Acute blood loss anemia -hemoglobin down to 11.2 this morning. Heme positive stools noted. Suspect subacute GI bleed. Anticoagulation on hold. Will consult GI.
Original Note:
Today's Communication/Plan
-
Add midodrine
Continue antibiotics
Await cultures
TSH
Assessment / Plan
Assessment / Plan
Gen-AAOx3, NAD
HEENT-NC, AT, anicteric, clear oral mm
Neck-supple
CV-irregular, tachy, no murmurs
Lungs-clear B/L
Abd-soft, NT, ND
Ext-no edema
Musculoskeletal-no cyanosis, clubbing
Skin-warm and dry
Neuro-grossly non-focal
Psych-calm, cooperative
Shock -unclear if septic shock versus other causes. Start midodrine.
New diagnosis rapid atrial fibrillation -now rate controlled but still relatively hypotensive. Currently on amiodarone, metoprolol, IV heparin. Cardiology following.
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 Creatinine coming down, 2.8 today. Baseline appears to be around 1.9. Await renal ultrasound.
Normal anion gap metabolic acidosis improving with bicarbonate therapy. Nephrology following.
Klebsiella sepsis -suspected to be due to UTI. Urine culture pending. Continue cefepime. Awaiting sensitivity. WBC count improved. Afebrile. Check repeat cultures.
CT scan does show moderate to severe hydronephrosis left greater than right kidneys. Moderate perinephric stranding bilaterally. No intrarenal calcifications noted. Severe prostatic enlargement noted. Abnormal urinary bladder wall thickening.
Urology following.
Elevated troponin -likely non-NV troponin elevation due to sepsis. Troponin is still trending up. He denies chest pain or shortness of breath.
Hyponatremia -sodium 132. Possibly hypovolemic in nature. Check urine studies.
Acute thrombocytopenia - possibly due to sepsis. Monitor for now.
Essential hypertension -currently hypotensive.
Chronic urinary retention -chronic Flanagan catheter
Dementia -unknown type.
Full code
Anticipated Discharge: > 48 hours
Subjective/Interval History
-
Date of Service: July 04, 2023
Patient seen and examined. No complaints.
Objective Data
-
Labs:
Laboratory Results
07/04/23 07/04/23
02:34 09:10
WBC 8.5
Hgb 11.2 L
Hct 31.4 L
Plt Count 125 L
APTT 39.9 H Pending
Sodium 132 L
Potassium 3.5
Chloride 104
Carbon Dioxide 20 L
BUN 72 H
Creatinine 2.8 H
Glucose 104 H
Calcium 7.1 L
Total Bilirubin 1.1
AST 26
ALT 12
Alkaline Phosphatase 40
Vital Signs:
Vital Signs
Temp Pulse Resp BP Pulse Ox
98.7 F 61 18 92/46 92
07/04/23 07:13 07/04/23 02:00 07/04/23 07:13 07/04/23 02:37 07/04/23 07:13
I&O
07/03/23 07/04/23 07/05/23
06:59 06:59 06:59
Intake Total 2556.4 / 2556.4
Output Total 500 / 500 1150 / 1150
Balance -500 / -500 1406.4 / 1406.4
Review of Systems
-
History Source: Patient
All other systems: Reviewed and negative
[2023-07-04] MEDS: ProAmatine 10 MG PO ×2 (09:01→13:23)
[2023-07-04] MEDS: LOPRESSOR 25 MG PO (09:03)
[2023-07-04] MEDS: PROSCAR 5 MG PO (09:03)
[2023-07-04 09:23] LABS: TSH 2.78 uIU/ml (0.47-4.68)
[2023-07-04 09:46] LABS: APTT 33.4 Sec (23.4-35.0)
--- NOTE | 2023-07-04 10:09 | W.PN.CD ---
Today's Communication / Plan
-
- Echocardiogram yesterday revealed normal cardiac function.
- Continue amiodarone drip.
- Will hold metoprolol tartrate 25 mg PO BID for now, given hypotension.
- Will discontinue heparin drip, given heme positive stool; decline in hemoglobin from 13.0 to 11.2 overnight.
- Continue midodrine for blood pressure support.
- Heme positive stool; recommend GI consultation.
Impression / Plan
-
Afib - new onset, rapid ventricular response.
- Echocardiogram yesterday revealed normal cardiac function.
- Continue amiodarone drip.
- Will hold metoprolol tartrate 25 mg PO BID for now, given hypotension.
- [id number] score is 3 (age, HTN), but with new anemia (4gram drop in hgb).
- Will discontinue heparin drip, given heme positive stool; decline in hemoglobin from 13.0 to 11.2 overnight.
Acute non-ischemic myocardial injury - troponin 0.048, 0.127.
- in the setting of acute MILTON, acute sepsis UTI.
- denies angina.
- check an echo when heart rates improve.
Sepsis UTI - acute.
- Management as per Hospitalist.
- Chronic Flanagan for urinary retention; Urology following.
MILTON - creatinine 4.2 on admit.
- Nephrology consulted.
HTN - not on meds at home.
-Continue midodrine for blood pressure support.
Anemia/thrombocytopenia - new.
-Heme positive stool; recommend GI consultation.
Physical Exam
Vital Signs/Labs
Vital Signs
Temp Pulse Resp BP Pulse Ox
98.7 F 103 18 91/63 92
07/04/23 07:13 07/04/23 08:00 07/04/23 07:13 07/04/23 09:01 07/04/23 08:53
07/03/23 07/04/23 07/05/23
06:59 06:59 06:59
Actual Weight 67.313 kg
07/04/23 02:34
07/04/23 02:34
APTT 33.4 Sec (23.4-35.0) 07/04/23 09:18
Magnesium 1.8 mg/dl (1.6-2.3) 07/04/23 02:34
TSH 2.78 uIU/ml (0.47-4.68) 07/04/23 02:34
LAB Results
07/02/23 07/03/23 07/03/23
19:52 10:14 15:59
Troponin I 0.048 H* 0.127 H* 0.418 H* D
07/04/23
02:34
Troponin I 0.497 H*
Physical Exam
Constitutional: No acute distress and Comfortable
EENT: Anicteric
Cardiovascular: Pedal edema is absent, Systolic murmur absent, Rhythm/rate is irregular and S1S2 is normal
Respiratory: Respiratory effort normal and Wheeze Present
GI: Soft
Neuro/Psych: Alert
Other: Skin (Warm, dry, intact)
Data Reviewed
-
Date of Service: July 04, 2023
EKG: Tracing Personally Visualized and interpreted (Telemetry: A-fib)
Echo: Report Reviewed by me (Normal LVEF)
Medical Tests (PFT, Pathology etc): Discussed with Nurse
Labs: Labs Reviewed by me
[2023-07-04 10:14] LABS: Troponin I 0.309 ng/ml
--- NOTE | 2023-07-04 11:14 | CM ---
Addendum entered by LISET Chirinos 07/05/23 14:53:
Additional information:
Pt. has [employer] for x8 hour shift for help at home. 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
Original Note:
CM following for DC planning needs.
Pt. transferred to IVU 07/03.
Reviewed initial assessment. Pt. comes from private home w/ dtr., 3 grandchildren. Pt. is reportedly functionally indep. at baseline w/ ADLs, mobiliity without the use of any assisted device.
Noted consult for monthly rodas changes.
Met w/ patient at bedside. He confirms initial assessment information. Some confusion noted in conversation; per discussion w/ RN-this is his baseline.
Call to dtrYarelis Brown. She confirms initial assessment information. She notes that patient is 'overly confident' in his functional abilities at home.
Discussed VN for rodas changes. She notes that patient has a chronic rodas. She would prefer to bring patient to the Dr. office. She notes that there are approx. 4-5 family members that help with this. It is most helpful, per daughter, to schedule
appointments well in advance for planning. She is not interested at this time in home RN for rodas changes.
When patient is medically able to participate, PT evaluation will be helpful to determine functional status and DC needs.
Will follow closely.
--- NOTE | 2023-07-04 13:01 | W.PN.NEPH.PH ---
Today's Communication / Plan
-
IV fluids provide
Assessment/Plan
-
Assessment:
MILTON on CKD (bl Cr 2)
NAGMA (previously HAGMA from [place])
HTN (now hypotensive)
chronic rodas for urinary retention
hydronephrosis
Lactic acidosis (resolved)
Sepsis unknown source:Klebsiella PNA
Plan:
- MILTON likely ATN from sepsis but cannot rule out post renal disease
- urology consult for worsening hydronephrosis and missed Rodas exchanges pending
- with fluid resuscitation Cr improved from 4.2 --> 3.4 and now down to 2.8, grossly nonoliguric >1 liter
-We will provide IV fluids another day
- NAGMA persists but improving on Na HCO3 fluids to assist
- obtained urine Na, urine Cl and urine K to assess if RTA (chronic rodas) vs. GI losses
- initiated NaHCO3 gtt at 100cc/hr
- chronic hyponatremia --> could be a component of tea and toast + beer potomania. monitor for now
-maintain midodrine for hypotension
-heparin gtt stopped due to heme positive stool
-Echo was normal
-Blood cultures with Klebsiella PNA
-
-
Date of Service: July 04, 2023
CC / HPI / ROS
-
Chief Complaint:
Acute kidney
History of Present Illness:
Creatinine down
Remains hemodynamically unstable on midodrine send IV fluid
Metabolic acidosis improving with alkaline IV fluid
Remains on amiodarone
Review of Systems:
Nonoliguric via Rodas
No weights recorded
No fevers
Heme positive stool
Labs
-
Labs:
WBC 8.5 10^3/uL (4.8-10.8) 07/04/23 02:34
RBC 3.70 10^6/uL (4.70-6.10) L 07/04/23 02:34
Hgb 11.2 g/dL (13.0-18.0) L 07/04/23 02:34
Hct 31.4 % (39.0-52.0) L 07/04/23 02:34
Plt Count 125 10^3/uL (130-400) L 07/04/23 02:34
Sodium 132 mmol/L (135-145) L 07/04/23 02:34
Potassium 3.5 mmol/L (3.5-5.1) 07/04/23 02:34
Chloride 104 mmol/L (98-107) 07/04/23 02:34
Carbon Dioxide 20 mmol/L (22-30) L 07/04/23 02:34
BUN 72 mg/dl (9-20) H 07/04/23 02:34
Creatinine 2.8 mg/dL (0.7-1.3) H 07/04/23 02:34
eGFR 20.91 07/04/23 02:34
Glucose 104 mg/dl (70-99) H 07/04/23 02:34
Calcium 7.1 mg/dl (8.4-10.2) L 07/04/23 02:34
Albumin 1.9 g/dl (3.5-5.0) L 07/04/23 02:34
Physical Exam
-
Vital Signs:
Vital Signs
Temp Pulse Resp BP Pulse Ox
98.3 F 103 20 91/63 93
07/04/23 12:15 07/04/23 08:00 07/04/23 12:15 07/04/23 09:01 07/04/23 12:15
Cardiovascular:: Regular rate and rhythm
Respiratory:: Bilateral: Coarse
Lung Excursion:: Normal
Abdomen:: Nontender
Bowel Sounds:: Normal
Extremity Edema:: None: Bilateral:
Rodas Catheter: Yes
[2023-07-04] MEDS: CORDARONE 518 MG IV (13:05)
--- NOTE | 2023-07-04 16:15 | CON.GI ---
Consultation
-
Date/Time Consultation Requested: 07/04/23 12:00pm
Date/Time Consultation Performed: 07/04/23 4:16pm
Requesting Provider: Zay Conteh
Performing Provider: Morteza Garcia
Reason for Consultation: Heme positive anemia
Medical History
Chief Complaint / HPI
Chief Complaint: Heme positive anemia
History of Present Illness:
Patient is an 80-year-old male who presents with weakness, cough, decreased by mouth intake. On admission he was noted be in acute renal failure with a creatinine of 4.2 and lactate was elevated at 4.3. He was admitted for urosepsis and blood
cultures came back positive for Klebsiella and urine culture positive for MSSA. On admission he was noted to be in A. fib with rapid ventricular rate and hypotension. Heparin drip was started. He is noted to have diarrhea that was brown but
tested heme positive. Hemoglobin dropped from 15 on admission to 11.2 so anticoagulation was stopped. He had colonoscopy in 2007 showed diverticulosis. No prior endoscopy. He denies NSAID usage.
Past Medical History
Past Medical History: HTN, Renal Failure and Other (Urinary retention with chronic Flanagan)
Past Surgical History: Other (hernia)
Social History
Tobacco: Non-Smoker
Alcohol: Occasional
Family History
Family History: Reviewed & Not Pertinent
Allergies / Home Medications
Allergy/AdvReac Type Severity Reaction Status Date / Time
No Known Allergies Allergy Unverified 07/02/23 21:56
Medication Instructions Recorded
dextromethorphan-guaifenesin ER 60 1 tab PO DAILYPRN PRN congestion 07/02/23
mg-1,200 mg tab,extend
release,12hr (Mucinex DM)
Review of Systems
-
All other systems: A 12 pt ROS was Negative except as stated above in HPI
Vital Signs
Temp Pulse Resp BP Pulse Ox
98.1 F 124 20 95/60 95
07/04/23 15:52 07/04/23 13:00 07/04/23 15:52 07/04/23 13:23 07/04/23 15:52
Physical Exam
Exam
General: No Apparent Distress
HEENT: Atraumatic
Respiratory: Non Labored Respirations
GI: Soft, Non Tender and Non Distended
Skin: Warm and Dry
Neuro: Alert
Psych: Calm
Results
WBC 8.5 10^3/uL (4.8-10.8) 07/04/23 02:34
Hgb 11.2 g/dL (13.0-18.0) L 07/04/23 02:34
Hct 31.4 % (39.0-52.0) L 07/04/23 02:34
MCV 84.9 fL (80.0-94.0) 07/04/23 02:34
Plt Count 125 10^3/uL (130-400) L 07/04/23 02:34
Absolute Neuts (auto) 7.7 10^3/uL (1.4-6.5) H 07/04/23 02:34
APTT 33.4 Sec (23.4-35.0) 07/04/23 09:18
Sodium 132 mmol/L (135-145) L 07/04/23 02:34
Potassium 3.5 mmol/L (3.5-5.1) 07/04/23 02:34
Chloride 104 mmol/L (98-107) 07/04/23 02:34
Carbon Dioxide 20 mmol/L (22-30) L 07/04/23 02:34
BUN 72 mg/dl (9-20) H 07/04/23 02:34
Creatinine 2.8 mg/dL (0.7-1.3) H 07/04/23 02:34
Calcium 7.1 mg/dl (8.4-10.2) L 07/04/23 02:34
Total Bilirubin 1.1 mg/dl (0.2-1.3) 07/04/23 02:34
AST 26 U/L (17-59) 07/04/23 02:34
ALT 12 U/L (0-50) 07/04/23 02:34
Alkaline Phosphatase 40 U/L (38-126) 07/04/23 02:34
Diagnostic Image Results:
Prior GI Procedures:
EGD:
Colonoscopy:
Assessment / Plan
-
Summary: 88yo male presents with weakness, cough, decreased PO intake. Elevated Cr 4.2 and lactate 4.3, admitted for urosepsis. BCx positive Klebsiella, UCx positive MSSA. After admission, noted to be in Afib/RVR with hypotension and heparin gtt
was started. Then Hgb dropped from 15 on admission 07/02 down to 11.2 on 07/04 so anticoagulation was stopped. Also having heme positive brown diarrhea. C diff negative. Colonoscopy 2007- diverticulosis.
07/03/23 CT AP- b/l pleural effusions. 7mm RLL nodule. B/L hydronephrosis, b/l hydroureter. Bladder wall thickening w stranding. Prostatomegaly. Small ascites. Small hiatal hernia. Mild distal esophageal thickening
Impression:
Urosepsis. Lactate 4.3 on admission down to normal 07/03 following resuscitation
Heme positive anemia. Drop in Hgb 15 (07/02) to 11.2 (07/04)
Diarrhea. C diff negative
Afib/RVR started on heparin gtt then stopped due to heme positive anemia
Elevated troponin due to acute non-ischemic myocardial injury
Recommendations:
No signs of active GI bleeding at this time
Continue to monitor Hgb and BMs
Protonix BID
He could have element of bowel ischemia with hypotension due to sepsis and Afib/RVR.
Abdomen currently benign, lactate normal
If Hgb stable and no signs of active GI bleed, could resume anticoagulation if that remains necessary for cardiac management
Will follow
-
-
Thank you for consultation and allowing me to participate in the patient's care. Please call the application developer GI physician during the after hours with any questions or concerns.
[2023-07-04] MEDS: ProAmatine PO (18:13)
--- NOTE | 2023-07-04 19:18 | PTCARENOTE ---
Pt very pleasant, oriented to himself and occasionally place. Heparin discontinued per after heme positive stool was reported, further liquid brown heme positive stool passed today. Pt seen by , plan for protonix. Telemetry
showed atrial fib at a rate @120 and brief episodes of sinus rhythm. Pt has been in consistent sinus rhythm @65 since 15:30 today. Amiodarone infusion continued as ordered, current infusion site without any sign of infiltration and pt denies any
discomfort, will monitor closely, hoping for early DC of amiodaone 07/05.. Pt OOB to chair and bedside commode with assist of 2. Pt is impulsive and unsteady , fall precautions in place including bed and chair alarms. Flanagan catheter draining cloudy
yellow urine.
[2023-07-04] MEDS: PROTONIX 40 MG PO (20:36)
[2023-07-04 22:58] LABS: 24 Hour Urine Total Volume Random mL; Chloride, Urine 36 mmol/L; Creatinine, Urine per Volume 106 mg/dL; Urine Collection Length Random hr
[2023-07-05] VITALS (11 sets, daily range): BP systolic 109–133; BP diastolic 53–91; PULSE 76–78; O2SAT 94–96
[2023-07-05 02:37] LABS: % Basophils 0.2 % (0-2); % Immature Granulocytes 0.5 % (0-0.5); % Lymphocytes 5.8 % (20.5-51.1); % Monocytes 4.8 % (1.7-9.3); % Neutrophils 86.7 % (42.2-75.2); Absolute Eosinophils 0.2 10^3/uL (0-0.7); Absolute Immature Granulocytes 0.1 10^3/uL (0-0.05); Absolute Lymphocytes 0.6 10^3/uL (1.2-3.4); Absolute Monocytes 0.5 10^3/uL (0.1-0.6); Absolute Neutrophils 8.5 10^3/uL (1.4-6.5); Hematocrit 31.9 % (39.0-52.0); Hemoglobin 11.3 g/dL (13.0-18.0); Mean Corp Hgb Conc. 35.4 g/dL (33.0-37.0); Mean Corpuscular Hgb 29.8 pg (27.0-31.0); Mean Corpuscular Volume 84.2 fL (80.0-94.0); Mean Platelet Volume 10.1 fL (7.4-10.4); Nucleated Red Blood Cells % 0 % (-); Platelet Count 146 10^3/uL (130-400); Red Blood Cell Count 3.79 10^6/uL (4.70-6.10); Red Cell Dist. Width 13.9 % (11.5-14.5); White Blood Cell Count 9.8 10^3/uL (4.8-10.8)
--- NOTE | 2023-07-05 02:47 | PTCARENOTE ---
Pt. OOB frequently to have liquid BM's, always a small amount. Sets bed alarm off, pleasant but very forgetful and disoriented to the fact that he's in the hospital. Was in NSR with frequent PAC's up until 147, then went back to A-fib (90's-low
100's). Amiodarone infusing as ordered. Pt. sleeping.
[2023-07-05 02:58] LABS: ALT (SGPT) 13 U/L (0-50); AST (SGOT) 31 U/L (17-59); Albumin 2.1 g/dl (3.5-5.0); Alkaline Phosphatase 29 U/L (38-126); Blood Urea Nitrogen 76 mg/dl (9-20); Carbon Dioxide 26 mmol/L (22-30); Chloride 99 mmol/L (98-107); Estimated Creatinine Clearance 21 ml/min; Glucose 126 mg/dl (70-99); Potassium 3.9 mmol/L (3.5-5.1); Sodium 131 mmol/L (135-145); Total Bilirubin 1.2 mg/dl (0.2-1.3); Total Protein 4.3 g/dl (6.3-8.2); eGFR 26.48
[2023-07-05] MEDS: MAXIPIME 1000 MG IV (05:04)
[2023-07-05] MEDS: STERILE WATER FOR INJECTION 10 ML IV (05:04)
[2023-07-05] MEDS: PROTONIX 40 MG PO ×2 (08:21→20:31)
[2023-07-05] MEDS: PROSCAR 5 MG PO (08:22)
[2023-07-05] MEDS: ProAmatine PO ×2 (08:22→17:59)
--- NOTE | 2023-07-05 08:44 | W.PN.URO.CBU ---
Today's Communication / Plan
-
continue rodas and proscar
Assessment / Plan
-
chronic urinary retention with bilateral hydro
acute on chronic renal insuff
suspected UTI- bacteremia
pt stable
cr declining toward baseline with new rodas
no sig hematuria
continue proscar
await final cx results
eventual plan will be to resume regular outpt rodas exchanges with dr neal
will follow
Diagnosis
-
Date of Service: July 05, 2023
-
Patient Diagnosis:
chronic urinary retention
ARF- likely post- obstructive
bacteremia
Subjective
-
pt looks fine
urine clear
cr basicially back to baseline
Objective
-
Vital Signs
Temp Pulse Resp BP Pulse Ox
97.9 F 71 20 118/53 94
07/05/23 08:15 07/05/23 08:05 07/05/23 08:15 07/05/23 08:22 07/05/23 08:17
Intake and Output
07/04/23 07/05/23 07/06/23
06:59 06:59 06:59
Intake Total 2556.4 / 2556.4 3030.4 / 3030.4
Output Total 1150 / 1150 1250 / 1250
Balance 1406.4 / 1406.4 1780.4 / 1780.4
Intake:
Oral fluids 960 / 960 360 / 360
IV fluids (Total) 1496.4 / 1496.4 2670.4 / 2670.4
Amiodarone 200.4 / 200.4 400.4 / 400.4
Heparin 96 / 96 30 / 30
Sterile Water For Injection 1200 / 1200 2240 / 2240
1000 ml 1,000 ml @ 100 mls/hr
IV .[id number] BAKARI with Sodium
Bicarbonate 150 Meq Rx#:
[id number]
IV piggybacks 100 / 100
Output:
Urine, Rodas 1150 / 1150 900 / 900
Urine, Voided 350 / 350
Other:
Number of unmeasured liquid
stools
Rectum 1
Laboratory Results
07/05/23 02:18
Review of Systems
-
Constitutional: Fatigue
Respiratory: No Symptoms
Cardiac: No Symptoms
Abdomen/GI: No Symptoms
Physical Exam
-
General - no acute distress
Abdomen - soft, non-tender
Genitalia - rodas in place
--- NOTE | 2023-07-05 09:22 | W.PN.HOSP.TC ---
Today's Communication/Plan
-
Started on diet. Start on IV heparin for anticoagulation. Follow H&H.
Consult PT OT.
Assessment / Plan
Assessment / Plan
Klebsiella pneumonia bacteremic UTI . Improved sepsis parameters. Hemodynamically stable. Sensitivities noted. Changed to Unasyn. Repeat cultures pending.
CT scan does show moderate to severe hydronephrosis left greater than right kidneys. Moderate perinephric stranding bilaterally. No intrarenal calcifications noted. Severe prostatic enlargement noted. Abnormal urinary bladder wall thickening.
Urology following-recommendation is continued Flanagan catheter drainage. No plan for interventions. Patient advised that he should get it changed every month, more often if cloudy.
Shock -suspect septic shock ; EF normal. Improved hemodynamics. Will continue midodrine for now.
New diagnosis rapid atrial fibrillation -now rate controlled . Currently on amiodarone, metoprolol, IV heparin. Cardiology following.
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 Creatinine coming down, 2.3 today. Baseline appears to be around 1.9. Renal imaging noted.
Normal anion gap metabolic acidosis improving with bicarbonate therapy. Nephrology following.
Hyponatremia-mild in nature. Continue to follow for now
Heme positive stools-no significant drop in H&H noted. Reviewed by GI who does not see acute bleeding. Recommend to start on a diet and follow for now. Patient resumed on IV heparin for anticoagulation for atrial fib indication
Elevated troponin -likely non-[place] troponin elevation due to sepsis. Troponin is still trending up. He denies chest pain or shortness of breath.
Acute thrombocytopenia - possibly due to sepsis. Monitor for now.
Essential hypertension -currently hypotensive.
Chronic urinary retention -chronic Flanagan catheter
Dementia -unknown type.
Full code
Anticipated Discharge: 24 - 48 hours
Subjective/Interval History
-
Date of Service: July 05, 2023
Getting slowly improved. Came in with weakness from the infection.
No fever chills.
No palpitations. In rate controlled A-fib. Denies shortness of breath. Requiring 2 L; drops to 88 on room air. Denies shortness of breath. Feels congested nasally.
No chest pain.
No nausea vomiting.
Objective Data
-
Labs:
Laboratory Results
07/05/23 07/05/23
02:18 08:28
WBC 9.8 Cancelled
Hgb 11.3 L Cancelled
Hct 31.9 L Cancelled
Plt Count 146 Cancelled
APTT Pending
Sodium 131 L
Potassium 3.9
Chloride 99
Carbon Dioxide 26
BUN 76 H
Creatinine 2.3 H
Glucose 126 H
Calcium 7.0 L
Total Bilirubin 1.2
AST 31
ALT 13
Alkaline Phosphatase 29 L
Vital Signs:
Vital Signs
Temp Pulse Resp BP Pulse Ox
97.9 F 71 20 118/53 88
07/05/23 08:15 07/05/23 08:05 07/05/23 08:15 07/05/23 08:22 07/05/23 08:59
I&O
07/04/23 07/05/23 07/06/23
06:59 06:59 06:59
Intake Total 2556.4 / 2556.4 3030.4 / 3030.4
Output Total 1150 / 1150 1250 / 1250 400 / 400
Balance 1406.4 / 1406.4 1780.4 / 1780.4 -400 / -400
Review of Systems
-
EENT: Denies Sore Throat
Abdomen/GI: Denies Abdominal Pain
Neuro: Denies Dizzy
Physical Exam
-
General: No Apparent Distress
HEENT: Moist Mucous Membranes
Respiratory: Clear to Auscultation; Negative Wheezes or Crackles
Cardiac: S1/S2 and Irregular Rhythm; Negative Tachycardic
GI: Soft and Nontender
Neuro: AO x 3 and No Motor Deficits; Negative Tremors
Psych: Calm; Negative Confused
Data Reviewed
-
Labs: Labs Reviewed by me
[2023-07-05 10:05] LABS: APTT 34.2 Sec (23.4-35.0)
[2023-07-05] MEDS: UNASYN IV ×2 (10:07→21:58)
--- NOTE | 2023-07-05 10:29 | W.PN.CD ---
Today's Communication / Plan
-
- Patient converted to sinus rhythm overnight.
- Patient cleared by GI to resume anticoagulation.
- Will discontinue heparin drip and start Eliquis 2.5 mg BID.
- Will discontinue amiodarone drip and place on PO amiodarone; recommend 400 mg BID x 7 days, then 200 mg BID x 7 days, then 200 mg daily maintenance dose.
- Will discontinue metoprolol tartrate, given low blood pressure.
- No further cardiac recommendations at this time; outpatient follow-up with Cardiology.
Impression / Plan
-
Afib - new onset, rapid ventricular response.
- Patient converted to sinus rhythm overnight.
- Echocardiogram this admission revealed normal cardiac function.
- Patient cleared by GI to resume anticoagulation.
- Will discontinue heparin drip and start Eliquis 2.5 mg BID.
- Will discontinue amiodarone drip and place on PO amiodarone; recommend 400 mg BID x 7 days, then 200 mg BID x 7 days, then 200 mg daily maintenance dose.
- Will discontinue metoprolol tartrate, given low blood pressure.
- [id number] score is 3 (age, HTN).
Acute non-ischemic myocardial injury - troponin 0.048, 0.127.
- in the setting of acute MILTON, acute sepsis UTI.
Sepsis UTI - acute.
- Management as per Hospitalist.
- Chronic Flanagan for urinary retention; Urology following.
MILTON - creatinine 4.2 on admit.
- Nephrology consulted.
HTN - not on meds at home.
-Continue midodrine for blood pressure support.
Anemia/thrombocytopenia - new.
-Hemoglobin is currently stable.
Physical Exam
Vital Signs/Labs
Vital Signs
Temp Pulse Resp BP Pulse Ox
97.9 F 71 20 118/53 88
07/05/23 08:15 07/05/23 08:05 07/05/23 08:15 07/05/23 08:22 07/05/23 08:59
07/05/23 08:28
07/05/23 02:18
APTT 34.2 Sec (23.4-35.0) 07/05/23 09:24
Magnesium 1.8 mg/dl (1.6-2.3) 07/04/23 02:34
TSH 2.78 uIU/ml (0.47-4.68) 07/04/23 02:34
LAB Results
07/02/23 07/03/23 07/03/23
19:52 10:14 15:59
Troponin I 0.048 H* 0.127 H* 0.418 H* D
07/04/23 07/04/23
02:34 09:18
Troponin I 0.497 H* 0.309 H* D
Physical Exam
Constitutional: No acute distress and Comfortable
EENT: Anicteric
Cardiovascular: Rhythm & rate is regular, Pedal edema is absent, Systolic murmur absent and S1S2 is normal
Respiratory: Respiratory effort normal and Lungs clear to auscul.
GI: Soft
Neuro/Psych: AO x 3
Other: Skin (Warm, dry, intact)
Data Reviewed
-
Date of Service: July 05, 2023
EKG: Tracing Personally Visualized and interpreted (Telemetry: Sinus rhythm, occasional PACs/PVCs)
Labs: Labs Reviewed by me
[2023-07-05] MEDS: ELIQUIS 2.5 MG PO ×2 (10:46→20:31)
[2023-07-05] MEDS: PACERONE 400 MG PO ×2 (10:46→20:31)
--- NOTE | 2023-07-05 11:28 | CM ---
Addendum entered by LISET Chirinos 07/05/23 15:24:
Noted PT-OT evaluation w/ recommendation for SNF placement.
Met w/ son, Cezar Wu at bedside (c: [phone]). Cezar provided further information on patient. Patient's spouse is currently a LTC resident at [facility]. Pt. has 8 children, some of whom live out of state but all of whom assist with patient's care and
their needs.
We discussed SNF recommendation. Son is agreeable to SNF and has discussed this with patient following PT eval.
Preference would be SNF @ [facility] since patient's spouse is LTC there.
Referral initiated to [facility]. Awaiting response. Did speak w/ admission/ Yuli, who states that there should be an available bed on Saturday, 07/08.
Plan is for SNF @ [facility], if accepted and bed avail.
Original Note:
CM following for DC planning needs.
Met w/ patient at bedside. Pt. with some pleasant confusion.
Awaiting PT-OT input for DC needs.
At this time, dtr. has not felt that home VN needed-would prefer to visit Urology office for rodas change.
Will await PT and follow up.
[2023-07-05] MEDS: ProAmatine 10 MG PO (11:39)
[2023-07-05] MEDS: SODIUM BICARBONATE 1150 MEQ IV (11:39)
--- NOTE | 2023-07-05 11:51 | W.PN.GI.CBS2 ---
Today's Communication / Plan
-
monitor hb and stools, resume heparin gtt, gi signing off
Assessment / Plan
-
Summary: 88yo male presents with weakness, cough, decreased PO intake. Elevated Cr 4.2 and lactate 4.3, admitted for urosepsis. BCx positive Klebsiella, UCx positive MSSA. After admission, noted to be in Afib/RVR with hypotension and heparin gtt
was started. Then Hgb dropped from 15 on admission 07/02 down to 11.2 on 07/04 so anticoagulation was stopped. Also having heme positive brown diarrhea. C diff negative. Colonoscopy 2007- diverticulosis.
07/03/23 CT AP- b/l pleural effusions. 7mm RLL nodule. B/L hydronephrosis, b/l hydroureter. Bladder wall thickening w stranding. Prostatomegaly. Small ascites. Small hiatal hernia. Mild distal esophageal thickening
Impression:
Urosepsis. Lactate 4.3 on admission down to normal 07/03 following resuscitation
Heme positive anemia. Drop in Hgb 15 (07/02) to 11.2 (07/04) - has remained stable at 11s
Diarrhea. C diff negative
Afib/RVR started on heparin gtt then stopped due to heme positive anemia
Elevated troponin due to acute non-ischemic myocardial injury
Recommendations:
No signs of active GI bleeding at this time
Continue to monitor Hgb and BMs
Protonix BID
He could have element of bowel ischemia with hypotension due to sepsis and Afib/RVR.
Abdomen currently benign, lactate normal
Hb may have been hemoconcentrated as well on admission and perhaps there was no bleeding
I d/w Dr. Copeland ok to restart heparin gtt today and diet resumed
If Hb remains stable with no overt bleed then ok to start oral anticoagulation tomorrow
Diarrhea may be due to antibiotics
No indication for procedure at this time, high risk given urosepsis, age, comorbidities, stable hb, no overt bleeding
GI will sign off please call with questions, changes in patient status (ie: dropping hb, overt bleeding, etc)
Total Time Spent with Patient (in minutes): 35
Subjective
Subjective
Date of Service: July 05, 2023
Diarrhea last night per nurse - 5 episodes, brown stool
Patient with dementia unable to give accurate history
Objective
Data Reviewed
Laboratory Data:
Laboratory Results
07/05/23 08:28
07/05/23 02:18
Laboratory Results
APTT 34.2 Sec (23.4-35.0) 07/05/23 09:24
Magnesium 1.8 mg/dl (1.6-2.3) 07/04/23 02:34
Total Bilirubin 1.2 mg/dl (0.2-1.3) 07/05/23 02:18
AST 31 U/L (17-59) 07/05/23 02:18
ALT 13 U/L (0-50) 07/05/23 02:18
Alkaline Phosphatase 29 U/L (38-126) L 07/05/23 02:18
Vital Signs and I&O:
Vital Signs
Temp Pulse Resp BP Pulse Ox
97.9 F 116 20 109/72 88
07/05/23 08:15 07/05/23 11:39 07/05/23 08:15 07/05/23 11:39 07/05/23 08:59
I&O
07/04/23 07/05/23 07/06/23
06:59 06:59 06:59
Intake Total 2556.4 / 2556.4 3030.4 / 3030.4 68 / 68
Output Total 1150 / 1150 1250 / 1250 400 / 400
Balance 1406.4 / 1406.4 1780.4 / 1780.4 -332 / -332
Physical Exam
Physical Exam
GI: Non Distended and Non Tender
--- NOTE | 2023-07-05 12:18 | PN.CDI ---
CDI
- -
CDI:
Physician Documentation Request
Admit Date: 07/02/23 21:19
Dear Doctor Min,
Patient admitted with sepsis.
07/05 PN, 'Klebsiella pneumonia bacteremic UTI....chronic Flanagan catheter.'
Please clarify the likely relationship between these conditions:
Yes, UTI is related to/associated with/due to chronic Flanagan catheter.
No, UTI is not related to/associated with/due to chronic Flanagan catheter but it is due to ___. (Please specify)
Unable to determine
Use of terms such as suspected, likely, concern for, or probable (associated with a specific diagnosis that is being evaluated, monitored, or treated as if it exists) are acceptable and can be coded in the inpatient setting, when documented at the
time of discharge.
Thank you,
Ynes MOLINA,RN,CCDS
CDI Specialist
Available via [place] text
Please use your independent medical judgment in providing your response.
--- NOTE | 2023-07-05 12:34 | PN.CDI ---
CDI
- -
CDI:
Physician Documentation Request
Admit Date: 07/02/23 21:19
Dear Doctor Min,
Patient admitted with sepsis.
07/04 Nursing skin assessment, 'Stage 1 sacral pressure injury, POA.'
Physician documentation of the type and location of wounds is required for compliant documentation. Based on the above clinical findings and your assessment, please provide the following in your progress note:
Type (etiology) of ulcer/wound:
- Pressure (decubitus) ulcer
- Other
- Unable to determine
For a pressure ulcer, please also include the stage* of the ulcer:
- Stage 1 - Skin intact, non-blanchable redness
- Stage 2 - Partial thickness loss of dermis, includes intact or open blister
- Stage 3 - Full thickness tissue not including bone, tendon or muscle
- Stage 4 - Full thickness tissue loss, including exposed bone, tendon or muscle
- Unstageable - Full thickness loss in which the base of the ulcer is covered by slough (yellow, nogueira, delgado, green or brown) and/or eschar (nogueira, brown or black) in the wound bed.
- Unable to determine
Use of terms such as suspected, likely, concern for, or probable (associated with a specific diagnosis that is being evaluated, monitored, or treated as if it exists) are acceptable and can be coded in the inpatient setting, when documented at the
time of discharge.
Thank you,
Ynes MOLINA,RN,CCDS
CDI Specialist
Available via [place] text
Please use your independent medical judgment in providing your response.
*Source: National Pressure Ulcer Advisory Panel (NPUAP)
--- NOTE | 2023-07-05 15:32 | CM ---
Priced Eliquis thru patient's insurance, . (ID#[id number]). Eliquis is covered. Estimated co pay is $47/mo.
Will placed free 30 d coupon in chart.
--- NOTE | 2023-07-05 17:11 | W.PN.NEPH.PH ---
Today's Communication / Plan
-
- stop sodium bicarb gtt
Assessment/Plan
-
Assessment:
MILTON on CKD (bl Cr 2)
NAGMA (previously HAGMA from [place])
HTN (now hypotensive)
chronic rodas for urinary retention
hydronephrosis
Lactic acidosis (resolved)
Sepsis unknown source:Klebsiella PNA
Plan:
- MILTON likely ATN from sepsis but cannot rule out post renal disease
- urology consult for worsening hydronephrosis and missed Rodas exchanges pending
-with fluid resuscitation Cr improved from 4.2 --> 3.4 and now down to 2.3, grossly nonoliguric >1 liter. bl around 2
-NAGMA resolved. likely related to distal RTA (+UAG and ph 8 of urine). no need for sodium bicarb no
-chronic hyponatremia --> could be a component of tea and toast + beer potomania. monitor for now
-maintain midodrine for hypotension
-heparin gtt stopped due to heme positive stool
-Echo was normal
-Blood cultures with Klebsiella PNA
If Cr downtrends tomorrow, we will sign off.
-
-
Date of Service: July 05, 2023
CC / HPI / ROS
-
Chief Complaint:
Acute kidney
History of Present Illness:
Creatinine down
Remains hemodynamically unstable on midodrine send IV fluid
Metabolic acidosis improving with alkaline IV fluid
Remains on amiodarone
Review of Systems:
Nonoliguric via Rodas
No weights recorded
No fevers
Heme positive stool
Labs
-
Labs:
WBC Cancelled 07/05/23 08:28
RBC Cancelled 07/05/23 08:28
Hgb Cancelled 07/05/23 08:28
Hct Cancelled 07/05/23 08:28
Plt Count Cancelled 07/05/23 08:28
Sodium 131 mmol/L (135-145) L 07/05/23 02:18
Potassium 3.9 mmol/L (3.5-5.1) 07/05/23 02:18
Chloride 99 mmol/L (98-107) 07/05/23 02:18
Carbon Dioxide 26 mmol/L (22-30) 07/05/23 02:18
BUN 76 mg/dl (9-20) H 07/05/23 02:18
Creatinine 2.3 mg/dL (0.7-1.3) H 07/05/23 02:18
eGFR 26.48 07/05/23 02:18
Glucose 126 mg/dl (70-99) H 07/05/23 02:18
Calcium 7.0 mg/dl (8.4-10.2) L 07/05/23 02:18
Albumin 2.1 g/dl (3.5-5.0) L 07/05/23 02:18
Physical Exam
-
Vital Signs:
Vital Signs
Temp Pulse Resp BP Pulse Ox
97.4 F 116 20 109/72 94
07/05/23 15:34 07/05/23 11:39 07/05/23 15:34 07/05/23 11:39 07/05/23 15:34
Cardiovascular:: Regular rate and rhythm
Respiratory:: Bilateral: Coarse
Lung Excursion:: Normal
Abdomen:: Distended
Bowel Sounds:: Normal
Extremity Edema:: +1: Bilateral:
Rodas Catheter: Yes
--- NOTE | 2023-07-05 19:17 | PTCARENOTE ---
Amiodarone infusion off, oral amiodarone given. Telemetry mostly sinus rhythm @ 60's with occasional atrial fib at a rate @120, aware. Pt assessed by PT for discharge planning needs, skilled rehab indicated. Pt oriented to place and
person today, very pleasant. Pt tolerating low cholesterol diet, he continues to pass liquid brown, mucus , trace heme positive stool with occasional incontinence. Eliquis started today.
[2023-07-05] MEDS: STERILE WATER FOR INJECTION IV (22:17)
--- NOTE | 2023-07-06 01:14 | PTCARENOTE ---
Pt. in NSR with PAC's, rate 60's-80's, with runs of A-fib up to 120's; sleeping. Placed back on 2L O2 for RA pulse ox 88% when laying down. Able to get OOB with assist x 1 & RW, pt. less unsteady and transfers stronger than day before. Had one
loose BM. Currently sleeping.
[2023-07-06 02:11] VITALS: BP 108/63
[2023-07-06 02:41] LABS: Hematocrit 32.6 % (39.0-52.0); Hemoglobin 11.5 g/dL (13.0-18.0); Mean Corp Hgb Conc. 35.3 g/dL (33.0-37.0); Mean Corpuscular Hgb 29.5 pg (27.0-31.0); Mean Corpuscular Volume 83.6 fL (80.0-94.0); Platelet Count 160 10^3/uL (130-400); Red Cell Dist. Width 13.9 % (11.5-14.5); White Blood Cell Count 8.5 10^3/uL (4.8-10.8)
[2023-07-06 03:03] LABS: Blood Urea Nitrogen 58 mg/dl (9-20); Calcium 6.9 mg/dl (8.4-10.2); Carbon Dioxide 32 mmol/L (22-30); Chloride 98 mmol/L (98-107); Estimated Creatinine Clearance 21 ml/min; Glucose 117 mg/dl (70-99); Potassium 2.9 mmol/L (3.5-5.1); Sodium 132 mmol/L (135-145); eGFR 26.48
[2023-07-06] MEDS: KCL 40 MEQ PO (04:15)
[2023-07-06] MEDS: CALCIUM GLUCONATE 100 IV (04:15)
--- NOTE | 2023-07-06 04:37 | PTCARENOTE ---
Low calcium and potassium levels from AM labs reported to ROSSI Grijalva. Order for potassium PO and calcium gluconate IV obtained and administered.
[2023-07-06 06:35] VITALS: BP 127/57
[2023-07-06] MEDS: PACERONE 400 MG PO ×2 (08:23→19:43)
[2023-07-06] MEDS: ProAmatine PO ×2 (08:23→14:17)
[2023-07-06] MEDS: PROSCAR 5 MG PO (08:24)
[2023-07-06] MEDS: PROTONIX 40 MG PO ×2 (08:24→19:43)
[2023-07-06] MEDS: ELIQUIS 2.5 MG PO ×2 (08:24→19:43)
--- NOTE | 2023-07-06 08:51 | W.PN.HOSP.TC ---
Addendum entered and electronically signed by Yonis Copeland MD 07/06/23 09:00:
Hypokalemia-replete
Original Note:
Today's Communication/Plan
-
Follow-up for any signs of rectal bleeding.
Continue with current management.
DC planning
Assessment / Plan
Assessment / Plan
Klebsiella pneumonia bacteremic UTI . Improved sepsis parameters. Hemodynamically stable. Sensitivities noted. Changed to Unasyn. Repeat cultures are sterile I will.
CT scan does show moderate to severe hydronephrosis left greater than right kidneys. Moderate perinephric stranding bilaterally. No intrarenal calcifications noted. Severe prostatic enlargement noted. Abnormal urinary bladder wall thickening.
Urology following-recommendation is continued Flanagan catheter drainage. No plan for interventions. Patient advised that he should get it changed every month, more often if cloudy.
Shock -suspect septic shock ; EF normal. Normalized hemodynamics. DC further midodrine.
New diagnosis rapid atrial fibrillation -paroxysmal-in sinus rhythm. Currently on amiodarone, metoprolol. Anticoagulation indicated-switched to Eliquis now
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 Creatinine coming down, 2.3 today. Baseline appears to be around 1.9. Renal imaging noted.
Normal anion gap metabolic acidosis-normalized, in fact alkalotic, from diuresis I suspect. Nephrology following.
Hyponatremia-mild in nature. Continue to follow for now
Heme positive stools-no significant drop in H&H noted. Hemoglobin stable. Follow for any rectal bleeding. Currently on a diet. GI following.
Elevated troponin -likely non-[place] troponin elevation due to sepsis. Troponin is still trending up. He denies chest pain or shortness of breath.
Acute thrombocytopenia - possibly due to sepsis. Monitor for now.
Essential hypertension -currently hypotensive.
Chronic urinary retention -chronic Flanagan catheter
Dementia -unknown type.
Full code
If no further rectal bleeding we will plan for discharge.
Patient needs rehab on discharge. Case management following.
Anticipated Discharge: Within 24 hours
Subjective/Interval History
-
Date of Service: July 06, 2023
Feeling continued improvement
Worked with PT - recommends SNF
No chest pain.
No shortness of breath.
Tolerating diet.
Objective Data
-
Labs:
Laboratory Results
07/06/23
02:19
WBC 8.5
Hgb 11.5 L
Hct 32.6 L
Plt Count 160
Sodium 132 L
Potassium 2.9 L D
Chloride 98
Carbon Dioxide 32 H
BUN 58 H
Creatinine 2.3 H
Glucose 117 H
Calcium 6.9 L*
Vital Signs:
Vital Signs
Temp Pulse Resp BP Pulse Ox
98.1 F 67 20 127/56 95
07/06/23 06:37 07/06/23 08:00 07/06/23 06:37 07/06/23 08:23 07/06/23 08:39
I&O
07/05/23 07/06/23 07/07/23
06:59 06:59 06:59
Intake Total 3030.4 / 3030.4 1188 / 1188
Output Total 1250 / 1250 1350 / 1350 320 / 320
Balance 1780.4 / 1780.4 -162 / -162 -320 / -320
Review of Systems
-
Constitutional: Denies Fever or Chills
EENT: Denies Sore Throat
Respiratory: Reports Cough
Neuro: Denies Dizzy
Physical Exam
-
General: No Apparent Distress
HEENT: Moist Mucous Membranes
Respiratory: Clear to Auscultation
Cardiac: Regular Rhythm and S1/S2; Negative Tachycardic
GI: Soft and Nontender
Neuro: AO x 3
Psych: Calm
Data Reviewed
-
Labs: Labs Reviewed by me
[2023-07-06] MEDS: UNASYN IV ×2 (09:55→22:05)
[2023-07-06 10:34] VITALS: BP 113/69
--- NOTE | 2023-07-06 13:30 | W.PN.NEPH.PH ---
Today's Communication / Plan
-
- Cr stable at 2.3
- nephrology to sign off
Assessment/Plan
-
Assessment:
MILTON on CKD (bl Cr 2)
NAGMA (previously HAGMA from [place])
HTN (now hypotensive)
chronic rodas for urinary retention
hydronephrosis
Lactic acidosis (resolved)
Sepsis unknown source:Klebsiella PNA
Plan:
- MILTON likely ATN from sepsis but cannot rule out post renal disease
-urology on board, continuing with Rodas
-with fluid resuscitation Cr improved from 4.2 --> 3.4 and now down stable at 2.3. grossly nonoliguric >1 liter. bl around 2, likely patient is back to baseline
-NAGMA resolved. likely related to distal RTA (+UAG and ph 8 of urine). no need for sodium bicarb now
-chronic hyponatremia --> could be a component of tea and toast + beer potomania. stable.
-maintain midodrine for hypotension
-Echo was normal
-Blood cultures with Klebsiella PNA
Nephrology will sign off. Please have the patient follow up in clinic for his CKD
-
-
Date of Service: July 06, 2023
CC / HPI / ROS
-
Chief Complaint:
Acute kidney
History of Present Illness:
Creatinine down
Remains hemodynamically unstable on midodrine send IV fluid
Metabolic acidosis improving with alkaline IV fluid
Remains on amiodarone
Review of Systems:
Nonoliguric via Rodas
No weights recorded
No fevers
Heme positive stool
Labs
-
Labs:
WBC 8.5 10^3/uL (4.8-10.8) 07/06/23 02:19
RBC 3.90 10^6/uL (4.70-6.10) L 07/06/23 02:19
Hgb 11.5 g/dL (13.0-18.0) L 07/06/23 02:19
Hct 32.6 % (39.0-52.0) L 07/06/23 02:19
Plt Count 160 10^3/uL (130-400) 07/06/23 02:19
Sodium 132 mmol/L (135-145) L 07/06/23 02:19
Potassium 2.9 mmol/L (3.5-5.1) L D 07/06/23 02:19
Chloride 98 mmol/L (98-107) 07/06/23 02:19
Carbon Dioxide 32 mmol/L (22-30) H 07/06/23 02:19
BUN 58 mg/dl (9-20) H 07/06/23 02:19
Creatinine 2.3 mg/dL (0.7-1.3) H 07/06/23 02:19
eGFR 26.48 07/06/23 02:19
Glucose 117 mg/dl (70-99) H 07/06/23 02:19
Calcium 6.9 mg/dl (8.4-10.2) L* 07/06/23 02:19
Albumin 2.1 g/dl (3.5-5.0) L 07/05/23 02:18
Physical Exam
-
Vital Signs:
Vital Signs
Temp Pulse Resp BP Pulse Ox
97.3 F 67 18 127/56 91
07/06/23 10:34 07/06/23 08:00 07/06/23 10:34 07/06/23 08:23 07/06/23 10:34
Cardiovascular:: Regular rate and rhythm
Respiratory:: Bilateral: Coarse
Lung Excursion:: Normal
Abdomen:: Nontender and Soft
Bowel Sounds:: Normal
Extremity Edema:: None: Bilateral:
Rodas Catheter: Yes
[2023-07-06 15:02] VITALS: BP 126/92
[2023-07-06 19:41] VITALS: BP 146/73
--- NOTE | 2023-07-06 21:54 | PTCARENOTE ---
Pt received at start of shift, HR 70s-80s SR w/ BBB and occasional PACs. Pt disoriented to time but pt aware of where he is and who he is. Pt OOB to commode, BM. Dorothy osorio. Reinforced purpose of eliquis, amio, and protonix with pt. Pt denies any
pain or SOB at this time, informed to notify RN if any changes. Call barajas within reach.
[2023-07-06 22:12] VITALS: BP 146/96
[2023-07-07] VITALS (10 sets, daily range): BP systolic 119–175; BP diastolic 68–101; PULSE 81; O2SAT 92; BMI 20.9
[2023-07-07 04:38] LABS: Hemoglobin 11.7 g/dL (13.0-18.0); Mean Corp Hgb Conc. 34.4 g/dL (33.0-37.0); Mean Corpuscular Hgb 29.1 pg (27.0-31.0); Mean Corpuscular Volume 84.6 fL (80.0-94.0); Mean Platelet Volume 9.8 fL (7.4-10.4); Platelet Count 211 10^3/uL (130-400); Red Blood Cell Count 4.02 10^6/uL (4.70-6.10); Red Cell Dist. Width 13.9 % (11.5-14.5); White Blood Cell Count 9.6 10^3/uL (4.8-10.8)
[2023-07-07 05:02] LABS: Blood Urea Nitrogen 45 mg/dl (9-20); Calcium 7.1 mg/dl (8.4-10.2); Carbon Dioxide 32 mmol/L (22-30); Chloride 101 mmol/L (98-107); Estimated Creatinine Clearance 23 ml/min; Glucose 104 mg/dl (70-99); Potassium 3.1 mmol/L (3.5-5.1); Sodium 133 mmol/L (135-145); eGFR 29.53
--- NOTE | 2023-07-07 05:10 | PTCARENOTE ---
During AM vital sign check, pt's O2 88%, 2L NC placed on pt, O2 93%.
[2023-07-07] MEDS: CALCIUM GLUCONATE 100 IV (06:08)
[2023-07-07] MEDS: KCL 40 MEQ PO (06:08)
--- NOTE | 2023-07-07 06:40 | PTCARENOTE ---
Pt's labs resulted. Ca 7.1, K 3.1. TT FINGER LIFT OPERATOR Samah, 100mL 1g Ca gluconate IV ordered and administered. 40meq K replacement ordered and administered.
[2023-07-07] MEDS: PROSCAR 5 MG PO (07:40)
[2023-07-07] MEDS: PACERONE 400 MG PO ×2 (07:40→19:51)
[2023-07-07] MEDS: ELIQUIS 2.5 MG PO ×2 (07:40→19:51)
[2023-07-07] MEDS: PROTONIX 40 MG PO ×2 (07:40→19:51)
[2023-07-07] MEDS: FLUSH (NSS) 1 FLUSH IV (07:42)
--- NOTE | 2023-07-07 08:46 | W.PN.URO.CBU ---
Today's Communication / Plan
-
- Maintain Flanagan catheter
- F/U as outpatient for regular catheter changes
Assessment / Plan
-
Chronic urinary retention with bilateral hydro
Acute on chronic renal insufficiency
Klebsiella cUTI + bacteremia
Cr declining - 2.1
No significant hematuria
- Maintain Flanagan catheter on discharge
- Continue finasteride
- IV abx for Klebsiella bacteremia
- Eventual plan to resume regular outpatient Flanagan catheter exchanges w/ Dr. Ye
Diagnosis
-
Date of Service: July 07, 2023
-
Patient Diagnosis:
Chronic urinary retention - indwelling Flanagan catheter
ARF- likely post-renal
Bacteremia
Subjective
-
Flanagan catheter draining well w/o issues.
Working w/ PT.
Objective
-
Vital Signs
Temp Pulse Resp BP Pulse Ox
98.3 F 74 20 148/74 95
07/07/23 07:37 07/07/23 07:37 07/07/23 07:37 07/07/23 07:37 07/07/23 07:37
Intake and Output
07/06/23 07/07/23 07/08/23
06:59 06:59 06:59
Intake Total 1188 / 1188 100 / 100
Output Total 1350 / 1350 1445 / 1445
Balance -162 / -162 -1345 / -1345
Intake:
Oral fluids 240 / 240 100 / 100
IV fluids (Total) 948 / 948
Amiodarone 68 / 68
Bicarb 880 / 880
Output:
Urine, Flanagan 1350 / 1350 1445 / 1445
Other:
Number of unmeasured liquid
stools
Rectum 1
Laboratory Results
07/07/23 04:28
07/07/23 04:28
Physical Exam
-
General - well developed, well nourished, no acute distress
Abdomen - soft, non-tender, non-tender
Genitalia - normal, Flanagan catheter draining well w/ clear urine
Skin - warm & dry with no rash
Neuro - AOx3, no motor deficits
Extremities - no clubbing, no cyanosis, no edema
Care Review
Data Reviewed
Discussed with: Hospitalist
--- NOTE | 2023-07-07 08:54 | PTCARENOTE ---
The patient complained of a sore right arm/elbow while assisting him up in bed. His right forearm and elbow are red, edematous, and tender to the touch. It also has a small marked area surrounding an old IV site. The patient had amiodarone running
in that arm that was discontinued on 07/05/23 at 1057. A warm compress was applied to that area for comfort.
--- NOTE | 2023-07-07 09:24 | W.PN.HOSP.TC ---
Today's Communication/Plan
-
DC planning
Assessment / Plan
Assessment / Plan
Klebsiella pneumonia bacteremic UTI . Resolved sepsis parameters. Hemodynamically stable. Sensitivities noted. Changed to Unasyn. Repeat cultures are sterile .
CT scan does show moderate to severe hydronephrosis left greater than right kidneys. Moderate perinephric stranding bilaterally. No intrarenal calcifications noted. Severe prostatic enlargement noted. Abnormal urinary bladder wall thickening.
Urology following-recommendation is continued Flanagan catheter drainage. No plan for interventions. Patient advised that he should get it changed every month, more often if cloudy.
Shock -suspect septic shock ; EF normal. Normalized hemodynamics.
New diagnosis rapid atrial fibrillation -paroxysmal-in sinus rhythm. Currently on amiodarone, metoprolol. Anticoagulation indicated-switched to Eliquis now
Left arm amiodarone extravasation 07/05 - cw warm compress and limb elevation -mildly sumptomatic with pain. No bullae or necrosis.
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 Creatinine coming down, 2.1 today. Baseline appears to be around 1.9. Renal imaging noted.
Normal anion gap metabolic acidosis-normalized, in fact alkalotic, from diuresis I suspect. Nephrology following.
Hyponatremia-mild in nature. Continue to follow for now
Heme positive stools-no significant drop in H&H noted. Hemoglobin stable. Follow for any rectal bleeding. Currently on a diet. GI following.
Elevated troponin -likely non-[place] troponin elevation due to sepsis. Troponin is still trending up. He denies chest pain or shortness of breath.
Acute thrombocytopenia - possibly due to sepsis. Monitor for now.
Essential hypertension -currently hypotensive.
Chronic urinary retention -chronic Flanagan catheter
Dementia -unknown type.
Full code
Medically stable for DC
DC in am to SNF
Anticipated Discharge: Within 24 hours
Subjective/Interval History
-
Date of Service: July 07, 2023
Voices no specific complaints.
Objective Data
-
Labs:
Laboratory Results
07/07/23
04:28
WBC 9.6
Hgb 11.7 L
Hct 34.0 L
Plt Count 211 D
Sodium 133 L
Potassium 3.1 L
Chloride 101
Carbon Dioxide 32 H
BUN 45 H
Creatinine 2.1 H
Glucose 104 H
Calcium 7.1 L
Vital Signs:
Vital Signs
Temp Pulse Resp BP Pulse Ox
98.3 F 74 20 148/74 95
07/07/23 07:37 07/07/23 07:37 07/07/23 07:37 07/07/23 07:37 07/07/23 07:37
I&O
07/06/23 07/07/23 07/08/23
06:59 06:59 06:59
Intake Total 1188 / 1188 100 / 100
Output Total 1350 / 1350 1445 / 1445
Balance -162 / -162 -1345 / -1345
Review of Systems
-
Constitutional: Denies Fever
EENT: Denies Sore Throat
Respiratory: Denies Cough or Trouble Breathing
Cardiac: Denies Chest Pain
Abdomen/GI: Denies Abdominal Pain, Nausea or Vomiting
Neuro: Denies Dizzy
Physical Exam
-
General: No Apparent Distress
HEENT: Moist Mucous Membranes
Respiratory: Clear to Auscultation
Cardiac: Regular Rhythm and S1/S2
GI: Soft
Musculoskeletal: Edema, Left Upper Extrem (Mild swelling in the proximal forearm with tenderness and mild erythema. Patient had IV amiodarone on 16-suspected infiltrate secondary to that.)
Neuro: AO x 3
Psych: Calm
Data Reviewed
-
Labs: Labs Reviewed by me
[2023-07-07] MEDS: FLUSH (NSS) 2 FLUSH IV (10:40)
[2023-07-07] MEDS: UNASYN IV ×2 (10:40→22:10)
--- NOTE | 2023-07-07 13:01 | PTCARENOTE ---
PRIMARY RN ALERTED VAT THAT PATIENT WAS FOUND TO HAVE A RED, WARM AREA WHERE AMIO WAS INFUSING / THROUGH A PERIPHERAL IV IN LEFT FOREARM. IV SITE WAS REMOVED PRIOR TO PRIMARY NURSE NOTICING THE RED AREA. ASSESSED AT THIS TIME. APPEARS TO BE
PHLEBITIS VS OLD INFILTRATE. WARMTH APPLIED TO AREA AND ARM ELEVATED AT THIS TIME. VAT WILL CONTINUE TO FOLLOW, PT RESTING OOB TO CHAIR. PRIMARY RN ALSO AWARE OF AFOREMENTIONED
--- NOTE | 2023-07-07 16:20 | PTCARENOTE ---
The patient has been going in and out of rapid afib. His HR fluctuates between the 80s and 130s. He is asymptomatic. I notified Dr. Copeland.
--- NOTE | 2023-07-08 00:56 | PTCARENOTE ---
Patient resting in bed. Eyes open watching TV. Denies pain or shortness of breath. SR BBB, occasional PAC's. Left upper arm Phlebitis resolving, warm compress applied, elevated. Flanagan to gravity, yellow clear urine. Bed alarm audible, is forgetful
at times but using the call barajas for assistance overnight
[2023-07-08 04:04] VITALS: BP 147/77
--- NOTE | 2023-07-08 04:15 | PTCARENOTE ---
temp 100.4, blankets removed. Labs collected, call barajas in reach
[2023-07-08 05:05] LABS: Blood Urea Nitrogen 37 mg/dl (9-20); Calcium 7.5 mg/dl (8.4-10.2); Carbon Dioxide 29 mmol/L (22-30); Chloride 99 mmol/L (98-107); Estimated Creatinine Clearance 26 ml/min; Glucose 97 mg/dl (70-99); Potassium 3.6 mmol/L (3.5-5.1); Sodium 133 mmol/L (135-145); eGFR 35.54
[2023-07-08 07:29] VITALS: BP 147/79
[2023-07-08] MEDS: PROTONIX 40 MG PO ×2 (09:21→20:19)
[2023-07-08] MEDS: PROSCAR 5 MG PO (09:21)
[2023-07-08] MEDS: PACERONE 400 MG PO ×2 (09:22→20:19)
[2023-07-08] MEDS: UNASYN IV ×2 (09:22→21:50)
[2023-07-08] MEDS: ELIQUIS 2.5 MG PO ×2 (09:22→20:19)
--- NOTE | 2023-07-08 09:42 | W.PN.HOSP.TC ---
Addendum entered and electronically signed by Yonis Copeland MD 07/08/23 09:53:
Patient without further rectal bleeding and hemoglobin stable. Unclear nature of the heme positivity. Patient on PPI twice daily which will change to once a day and use it for a month and if no recurrent issues to discontinue. If recurrent
bleeding follow-up with GI.
Original Note:
Today's Communication/Plan
-
DC
Assessment / Plan
Assessment / Plan
Klebsiella pneumonia bacteremic UTI . Resolved sepsis parameters. Hemodynamically stable. Sensitivities noted. Changed to Unasyn. Repeat cultures are sterile .
CT scan does show moderate to severe hydronephrosis left greater than right kidneys. Moderate perinephric stranding bilaterally. No intrarenal calcifications noted. Severe prostatic enlargement noted. Abnormal urinary bladder wall thickening.
Urology following-recommendation is continued Flanagan catheter drainage. No plan for interventions. Patient advised that he should get it changed every month, more often if cloudy.
Switch to oral augmentin - for 4 more days to complete a 10 day course of abx
Low grade fever noted -follow for now on abx
Shock -suspect septic shock ; EF normal. Normalized hemodynamics.
New diagnosis rapid atrial fibrillation -paroxysmal-in sinus rhythm. Currently on amiodarone, metoprolol. Anticoagulation indicated-switched to Eliquis now
Left arm amiodarone extravasation 07/05 - cw warm compress and limb elevation -mildly sumptomatic with pain. No bullae or necrosis.
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 Creatinine coming down, 1.8 today. Baseline appears to be around 1.9. Renal imaging noted.
Normal anion gap metabolic acidosis-normalized, in fact alkalotic, from diuresis I suspect. Nephrology following.
Hyponatremia-mild in nature. Continue to follow for now
Heme positive stools-no significant drop in H&H noted. Hemoglobin stable. Follow for any rectal bleeding. Currently on a diet. GI signed off.HH stable.
Elevated troponin -likely non-[place] troponin elevation due to sepsis. Troponin is still trending up. He denies chest pain or shortness of breath.
Acute thrombocytopenia - possibly due to sepsis. Resolved.
Essential hypertension -BP under goal
Chronic urinary retention -chronic Flanagan catheter
Dementia -unknown type.
Full code
Medically stable for DC
DC to SNF
More than 30 minutes spent in discharge including
Final examination of the patient
Summarizing hospital stay
Instructions for continuing care to all relevant caregivers
Preparation of discharge records, prescriptions, and referral forms
Total time spent (in minutes): 35
Anticipated Discharge: Today
Subjective/Interval History
-
Date of Service: July 08, 2023
Feels ok
Denies chest pain, palpitations or shortness of breath.
No fever or chills. Low-grade temp morning noted.
Objective Data
-
Labs:
Laboratory Results
07/08/23
04:10
Sodium 133 L
Potassium 3.6
Chloride 99
Carbon Dioxide 29
BUN 37 H
Creatinine 1.8 H
Glucose 97
Calcium 7.5 L
Vital Signs:
Vital Signs
Temp Pulse Resp BP Pulse Ox
99.2 F 76 18 147/79 92
07/08/23 07:27 07/08/23 09:22 07/08/23 07:27 07/08/23 09:22 07/08/23 07:29
I&O
07/07/23 07/08/23 07/09/23
06:59 06:59 06:59
Intake Total 100 / 100 540 / 540
Output Total 1445 / 1445 1100 / 1100
Balance -1345 / -1345 -560 / -560
Review of Systems
-
EENT: Denies Sore Throat
Respiratory: Denies Cough
Neuro: Denies Dizzy
Physical Exam
-
General: No Apparent Distress
HEENT: Moist Mucous Membranes
Respiratory: Clear to Auscultation
Cardiac: Regular Rhythm and S1/S2
GI: Soft and Nontender
Neuro: AO x 3
Data Reviewed
-
Labs: Labs Reviewed by me
--- NOTE | 2023-07-08 09:52 | W.DS.TRANS ---
DC Summary - Emt
-
Discharge Instructions:
Sleep Apnea Risk Intermediate
Discharge Diagnosis/Procedures Catheter directed Klebsiella pneumoniae
bacteremic UTI;New parox afib, MILTON on CKD
Diet Low Cholesterol
Activity As tolerated
Driving Restrictions No driving
Bathing Restrictions None
Blood Work CBC, BMP in one week
Other Services PT
Specialty Instructions Weigh Daily
Instructions:
Stand-Alone Forms:
Changes to Home Medications: Yes
Discharge Medications:
DC Medications w/original date entered in [employer]
dextromethorphan-guaifenesin ER 60 mg-1,200 mg tab,extend release,12hr (Mucinex DM) 1 tab PO DAILYPRN PRN congestion 07/02/23
amiodarone 200 mg tablet (Pacerone) 400 mg PO BID #1 tab 07/08/23
amoxicillin 875 mg-potassium clavulanate 125 mg tablet 1 tab PO BID #8 tabs 07/08/23
apixaban 2.5 mg tablet (Eliquis) 2.5 mg PO BID #1 tab 07/08/23
finasteride 5 mg tablet 5 mg PO DAILY #1 tab 07/08/23
pantoprazole 40 mg tablet,delayed release 40 mg PO BID #1 tab 07/08/23
Home Medication Changes
All medications except Mucinex DM are new
Pending Results: No
--- NOTE | 2023-07-08 11:08 | VATNOTE ---
vat rounds': Left arm continues to be red and phlebitic. Cool compress applied for comfort. Will continue to monitor closely.
[2023-07-08 11:50] VITALS: BP 137/88
--- NOTE | 2023-07-08 12:55 | CM ---
Addendum entered by Felicitas Lynne 07/08/23 14:41:
Met with Mr. Watts and telephone call to daughter, Felicitas to review discharge plans, Daughter feels he has traditional Medicare. Reviewed that the system shows the he has [employer] M/C Advantage plan. [facility] states they do not have
a contract and can not accept. Daughter is going to call me back regarding his insurance coverage.
Original Note:
Reviewed chart. Telephone call to [facility] Admission to confirm ability to accept. Mr. Watts has [employer] M/C Advantage as his insurance so he will need an auth, number and [facility] Admissions needs to confirm ability to accept.
Telephone call to [facility] ([phone]) to start the pre-cert process. Faxed clinical to [facility] for review. Awaiting determination from insurance and if [facility] can accept. Medical work-up in progress. The discharge plan is to go to [facility] if they can accept and if insurance approved SNF/Rehab.
[2023-07-08 16:11] VITALS: BP 146/70
[2023-07-08 19:02] VITALS: BP 131/77
[2023-07-08 22:20] VITALS: BP 142/74
[2023-07-09] VITALS (11 sets, daily range): BP systolic 87–138; BP diastolic 53–77; PULSE 86–87; O2SAT 95
[2023-07-09 04:57] LABS: Hematocrit 36.2 % (39.0-52.0); Hemoglobin 12.3 g/dL (13.0-18.0); Mean Corpuscular Hgb 29.9 pg (27.0-31.0); Mean Corpuscular Volume 87.9 fL (80.0-94.0); Mean Platelet Volume 9.4 fL (7.4-10.4); Platelet Count 328 10^3/uL (130-400); Red Blood Cell Count 4.12 10^6/uL (4.70-6.10); White Blood Cell Count 11.9 10^3/uL (4.8-10.8)
[2023-07-09] MEDS: TYLENOL 650 MG PO (07:18)
[2023-07-09] MEDS: PACERONE 400 MG PO ×2 (08:29→21:12)
[2023-07-09] MEDS: PROTONIX 40 MG PO ×2 (08:29→21:12)
[2023-07-09] MEDS: ELIQUIS 2.5 MG PO ×2 (08:30→21:12)
[2023-07-09] MEDS: PROSCAR 5 MG PO (08:30)
--- NOTE | 2023-07-09 10:03 | W.PN.HOSP.TC ---
Today's Communication/Plan
-
Switch antibiotics to Ancef.
Consult ID.
Obtain ultrasound of the left.
Repeat blood cultures.
Assessment / Plan
Assessment / Plan
Klebsiella pneumonia bacteremic UTI . Resolved sepsis parameters. Hemodynamically stable. Sensitivities noted. Changed to Unasyn. Repeat cultures are sterile .
CT scan does show moderate to severe hydronephrosis left greater than right kidneys. Moderate perinephric stranding bilaterally. No intrarenal calcifications noted. Severe prostatic enlargement noted. Abnormal urinary bladder wall thickening.
Urology following-recommendation is continued Flanagan catheter drainage. No plan for interventions. Patient advised that he should get it changed every month, more often if cloudy.
Currently on IV Unasyn which it is susceptible to.
Recurrent fever-spike of fever noted today. He had a low-grade fever yesterday. I doubt this is recurrence of UTI. Obtain blood cultures. Concern for left arm cellulitis. He had a amiodarone infusion infiltration at the beginning of admission.
Switch to Ancef to cover cellulitis. Consult ID. Obtain ultrasound of the left arm.
Shock -suspect septic shock ; EF normal. Normalized hemodynamics.
New diagnosis rapid atrial fibrillation -paroxysmal-in sinus rhythm. Currently on amiodarone, metoprolol. Anticoagulation indicated-switched to Eliquis now
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 Creatinine coming down, 1.8 yesterday. Baseline appears to be around 1.9. Renal imaging noted.
Normal anion gap metabolic acidosis-normalized, in fact alkalotic, from diuresis I suspect. Nephrology following.
Heme positive stools-no significant drop in H&H noted. Hemoglobin stable. Follow for any rectal bleeding. Currently on a diet. GI signed off.HH stable.
Elevated troponin -likely non-[place] troponin elevation due to sepsis. Troponin is still trending up. He denies chest pain or shortness of breath.
Acute thrombocytopenia - possibly due to sepsis. Resolved.
Essential hypertension -BP under goal
Chronic urinary retention -chronic Flanagan catheter
Dementia -unknown type.
Full code
Hold discharge.
Anticipated Discharge: 24 - 48 hours
Subjective/Interval History
-
Date of Service: July 09, 2023
Is alert and oriented, voicing no specific complaint. He had a spike of fever which he states he did not feel it. No sweating.
Denies any shortness of breath or cough. No nausea or vomiting. No diarrhea.
He has a left which was infiltrated that the day. He feels it is swollen but does not complain much of pain though.
Objective Data
-
Labs:
Laboratory Results
07/09/23
04:37
WBC 11.9 H
Hgb 12.3 L
Hct 36.2 L
Plt Count 328 D
Vital Signs:
Vital Signs
Temp Pulse Resp BP Pulse Ox
101.7 F H 88 20 124/96 91
07/09/23 06:44 07/09/23 08:29 07/09/23 06:44 07/09/23 08:29 07/09/23 06:44
I&O
07/08/23 07/09/23 07/10/23
06:59 06:59 06:59
Intake Total 540 / 540 410 / 410
Output Total 1100 / 1100 975 / 975
Balance -560 / -560 -565 / -565
Review of Systems
-
EENT: Denies Sore Throat
Respiratory: Denies Cough
Abdomen/GI: Denies Abdominal Pain
Neuro: Denies Dizzy
Physical Exam
-
General: No Apparent Distress
HEENT: Moist Mucous Membranes
Respiratory: Clear to Auscultation
Cardiac: Regular Rhythm and S1/S2
GI: Soft and Nontender
Musculoskeletal: Edema, Left Upper Extrem (Redness which is no worse. Very mild tenderness denzel over the lateral aspect of foreram distally which is slightly swollen; left foreram is swollen in general)
Neuro: AO x 3
Psych: Calm
--- NOTE | 2023-07-09 10:29 | VATNOTE ---
Addendum entered by Juliana Porter RN 07/09/23 10:43:
Area measures 10 cm x 3.5 cm.
Original Note:
L arm phlebitic area increased in size and redness. Area marked. Spoke to primary RN who was in the room at time of assessment and pt is going for U/S of L arm. Blood cultures are being obtained as well, concern for cellulitis. Will continue to
monitor closely.
[2023-07-09] MEDS: ANCEF 5 IV ×2 (10:42→18:25)
--- NOTE | 2023-07-09 14:05 | CM ---
Reviewed chart. Received telephone call from [facility] regarding denial of SNF/Rehab due to not in network facility. She cancelled SNF/Request because he was not medically stable for transfer today. She did states could ask for Go-Gap exemption to go to
[facility] because his spouse is there. Updated [facility] admission regarding possible go-gap exemption. Son also talking to [facility] regarding paying privately for SNF stay. Will need to re-start pre-cert once tentative discharge date
is known. Medical work-up i n progress. The discharge plan is to go to SNF/Rehab. if bed available when medically stable.
--- NOTE | 2023-07-09 19:12 | CON.ID ---
Consultation
-
Date/Time Consultation Requested: 07/09/23 9:53
Date/Time Consultation Performed: 07/09/23 17:32
Requesting Provider: Dr Copeland
Performing Provider: Dr Rodriguez
Reason for Consultation: Fever
Chief Complaint / Past History
Chief Complaint
generalized weakness, poor p.o. intake, and clinical dehydration.
History of Present Illness
Mr Watts is an 88 year old male with history of BPH with chronic rodas, CKD who presented here for weakness, anorexia and dehydration, cough and congestion. No fevers, chills, chest pain, shortness of breath, nausea vomiting.
Since arrival found to have no initial fevers, fevers did begin 07/08 to Tmax of 100.4 and then this AM with philly fever to 101.7, bp stable, on arrival wbc 14.0, hgb 15.0, plt 174, cr 4.2, lactic acid 4.3 rapidly resolving, ua 11-15 wbc/hpf and many
bacteria, urine culture 100 K K pneumoniae, bloood cultures x2 also with k pneumoniae managed as suspected shock and found to have new afib with rvr, initially on cefepime, later switched to unasyn. Then yesterday developed amiodarone infiltration
and phlebitis of the L arm. On my exam today denies: headaches, sinus tenderness. Reports mild nonproductive cough not associated with eating. No: nausea, vomiting, diarrhea, constipation, new joint pains or new rashes. No tenderness over
current IVs. L arm with swelling redness centered around swollen PIV site with minimal swelling - area circled with marker. 'I feel fine.' Currently on cefazolin. ID is consulted for assistance with management.
Past History
Additional Past Medical History:
HTN, CKD, chronic Rodas for urinary retention
Additional Past Surgical History:
hernia repair
Allergy History:
No Known Allergies Allergy (Unverified 07/02/23 21:56)
Medications Reviewed: Yes
Social History
Tobacco: Non-Smoker
Alcohol: Occasional
Drug: None
Family History
Family History: Not Pertinent
Review of Systems
Review of Systems
General: Fever and Chills
All systems: All other systems were reviewed and were negative
Vital Signs
Temp Pulse Resp BP Pulse Ox
97.4 F 70 18 107/58 97
07/09/23 15:16 07/09/23 18:00 07/09/23 15:16 07/09/23 15:14 07/09/23 15:16
Physical Exam
Physical Exam
Constitutional: No Acute Distress
Cardiovascular: Regular Rate and S1/S2; Negative Murmur or Rub
Pulmonary: Clear and Symmetric; Negative Wheezes, Rales or Rhonchi
Gastrointestinal: Soft, Non Tender, Non Distended and Normal Bowel Sounds
Extremities: Other (redness, swelling of the left arm at previous PIV site without purulence)
Skin: Warm and Dry; Negative Rash or Jaundice
Lab / Diagnostic Study Results
07/09/23 04:37
07/08/23 04:10
Abs Immat Gran (auto) 0.1 10^3/uL (0-0.05) H 07/05/23 02:18
Absolute Neuts (auto) 8.5 10^3/uL (1.4-6.5) H 07/05/23 02:18
Absolute Lymphs (auto) 0.6 10^3/uL (1.2-3.4) L 07/05/23 02:18
Absolute Monos (auto) 0.5 10^3/uL (0.1-0.6) 07/05/23 02:18
Absolute Basos (auto) 0.0 10^3/uL (0-0.2) 07/05/23 02:18
Immature Gran % 0.5 % (0-0.5) 07/05/23 02:18
Neutrophils % 86.7 % (42.2-75.2) H 07/05/23 02:18
Lymphocytes % 5.8 % (20.5-51.1) L 07/05/23 02:18
Monocytes % 4.8 % (1.7-9.3) 07/05/23 02:18
Eosinophils % 2.0 % (0-6) 07/05/23 02:18
Basophils % 0.2 % (0-2) 07/05/23 02:18
Lactic Acid 1.1 mmol/L (0.7-2.0) 07/03/23 07:44
Microbiology Results
Micro:
07/02/23 20:09 Blood Culture - Final
Blood/Venous Klebsiella pneumoniae
Gram Stain - Final
07/04/23 10:07 Blood Culture - Final
Blood/Venous No Growth - Final Report
07/09/23 11:18 Blood Culture - Pending
Blood/Venous
07/09/23 10:41 Blood Culture - Pending
Blood/Venous
07/04/23 09:18 Blood Culture - Final
Blood/Venous No Growth - Final Report
07/04/23 00:50 Salmonella/Shigella Culture - Final
Feces/Stool No Salmonella, Shigella, Aeromonas or Plesiomonas species
isolated.
Campylobacter Culture - Final
No Campylobacter species isolated.
Shiga Toxin Test - Final
No E. coli Shiga Toxin 1 or 2 detected.
07/02/23 19:52 Blood Culture - Final
Blood/Venous Klebsiella pneumoniae
Gram Stain - Final
07/02/23 21:36 Urine Culture - Final
Urine Klebsiella pneumoniae
07/04/23 00:50 C. difficile GDH Antigen & Toxins - Final
Feces/Stool Negative for toxigenic C.difficile
- Final
Negative for Norovirus GI and GII.
07/03/23 00:30 MRSA Screen - Final
Nose No Methicillin Resistant Staphylococcus aureus isolated.
07/02/23 19:52 Influenza Types A & B ([facility]) - Final
Nasal Swab Negative for Influenza A & B, NAAT
Negative results must be combined with clinical observations
and patient history.
Nucleic Acid Amplification test (NAAT)performed on the
[employer] platform.
Assessment / Plan
Fever
UTI
Phlebitis due to amiodarone infiltration
- repeat blood cultures are negative
- suspect fever related to phlebitis due to amiodarone infiltration, do not appreciate definite cellulitis (more likely phlebitis) on my exam today - this is a distinction in diagnosis without a difference in management
- cefazolin for today for UTI, tomorrow switch to keflex to continue through 07/15 - two week total course
- follow up with PCP
--- NOTE | 2023-07-09 23:18 | PTCARENOTE ---
assumed care of patient at the change of shift. AAOx3. forgetful. bed alarm for safety. L arm edema noted, +2, ecchymotic, red, warm. patient states 'it feels much better.' elevated on a pillow. ambulated to the BR with the rolling walker,
generalized weakness. HR SR with a BBB. bp stable. rodas care completed. L arm ultrasound completed tonight as well. patient tolerated. call barajas within reach calls appropriately.
--- NOTE | 2023-07-10 04:07 | DOWNTIME ---
There was a [employer] Client Process Improvement Manager Downtime on 07/10/2023 from 0111 to 07/10/2023 at 0405. Downtime documentation of patient's care, including medication administrations, has been reconciled in the electronic record per guidelines. Refer to the
patient's paper chart under the miscellaneous tab to see printed paper medication records and downtime forms.
[2023-07-10 05:17] VITALS: BP 102/45
[2023-07-10 07:07] VITALS: BP 142/70
[2023-07-10] MEDS: ELIQUIS 2.5 MG PO (08:49)
[2023-07-10] MEDS: KEFLEX 500 MG PO (08:49)
[2023-07-10] MEDS: PACERONE 400 MG PO (08:49)
[2023-07-10] MEDS: PROSCAR 5 MG PO (08:49)
[2023-07-10] MEDS: PROTONIX 40 MG PO (08:49)
--- NOTE | 2023-07-10 09:19 | W.PN.HOSP.TC ---
Today's Communication/Plan
-
DC
Assessment / Plan
Assessment / Plan
Klebsiella pneumonia bacteremic UTI due to chronic rodas catheter- Resolved sepsis parameters. Hemodynamically stable. Sensitivities noted. Changed to Unasyn. Repeat cultures are sterile .
CT scan does show moderate to severe hydronephrosis left greater than right kidneys. Moderate perinephric stranding bilaterally. No intrarenal calcifications noted. Severe prostatic enlargement noted. Abnormal urinary bladder wall thickening.
Urology following-recommendation is continued Rodas catheter drainage. No plan for interventions. Patient advised that he should get it changed every month, more often if cloudy.
Currently on oral abx .
Shock -suspect septic shock ; EF normal. Normalized hemodynamics.
Recurrent fever-spike of fever noted yesterday. I doubt this is recurrence of UTI. Obtain blood cultures- pedning . Concern for left arm cellulitis vs thrombophlebitis . He had a amiodarone infusion infiltration at the beginning of admission.
Switched to Ancef to cover cellulitis. Appreciate ID input. Antibiotics switched to oral cephalexin to continue for 2 more weeks. Resolved fevers.
Left arm nonocclusive DVT-ultrasound shows Short segment of nonocclusive thrombus within the left basilic vein in the region of the antecubital fossa and extending into the proximal left forearm. Cannot rule out thrombophlebitis from the recent IV
amiodarone infiltration. On anticoagulation for A-fib. Currently on antibiotics which I would continue. Improved swelling. Patient does not complain much of pain.
New diagnosis rapid atrial fibrillation -paroxysmal-in sinus rhythm. Currently on amiodarone, metoprolol. Anticoagulation indicated-switched to Eliquis now
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 Creatinine coming down, 1.8 yesterday. Baseline appears to be around 1.9. Renal imaging noted.
Normal anion gap metabolic acidosis-normalized, in fact alkalotic, from diuresis I suspect. Nephrology following.
Heme positive stools-no significant drop in H&H noted. Hemoglobin stable. Follow for any rectal bleeding. Currently on a diet. GI signed off.HH stable.
Elevated troponin -likely non-MT troponin elevation due to sepsis. Troponin is still trending up. He denies chest pain or shortness of breath.
Acute thrombocytopenia - possibly due to sepsis. Resolved.
Stage 1 sacral pressure injury, POA.
Essential hypertension -BP under goal
Chronic urinary retention -chronic Rodas catheter
Dementia -unknown type.
Full code
Medically stable for discharge to rehab
More than 30 minutes spent in discharge including
Final examination of the patient
Summarizing hospital stay
Instructions for continuing care to all relevant caregivers
Preparation of discharge records, prescriptions, and referral forms
Total time spent (in minutes): 32
Anticipated Discharge: Today
Subjective/Interval History
-
Date of Service: July 10, 2023
Objective Data
-
Vital Signs:
Vital Signs
Temp Pulse Resp BP Pulse Ox
99.6 F 78 20 142/70 87
07/10/23 05:18 07/10/23 08:49 07/10/23 05:18 07/10/23 08:49 07/10/23 05:18
I&O
07/09/23 07/10/23 07/11/23
06:59 06:59 06:59
Intake Total 410 / 410 360 / 360
Output Total 975 / 975 500 / 500
Balance -565 / -565 -140 / -140
--- NOTE | 2023-07-10 09:29 | W.DS.TRANS ---
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
-
Discharge Instructions:
Sleep Apnea Risk Intermediate
Discharge Diagnosis/Procedures Catheter directed Klebsiella pneumoniae
bacteremic UTI;New parox afib, MILTON on CKD, left
arm thrombophlebitis/cellulitis; left arm
amiodarone infiltration
Diet Low Cholesterol
Activity As tolerated
Driving Restrictions No driving
Bathing Restrictions None
Blood Work CBC, BMP in one week
Other Services PT
Specialty Instructions Weigh Daily
Instructions:
Stand-Alone Forms:
Changes to Home Medications: Yes
Discharge Medications:
DC Medications w/original date entered in [facility]
dextromethorphan-guaifenesin ER 60 mg-1,200 mg tab,extend release,12hr (Mucinex DM) 1 tab PO DAILYPRN PRN congestion 07/02/23
amiodarone 200 mg tablet (Pacerone) 400 mg PO BID #1 tab 07/08/23
apixaban 2.5 mg tablet (Eliquis) 2.5 mg PO BID #1 tab 07/08/23
finasteride 5 mg tablet 5 mg PO DAILY #1 tab 07/08/23
pantoprazole 40 mg tablet,delayed release 40 mg PO BID #1 tab 07/08/23
cephalexin 500 mg capsule 500 mg PO BID #1 cap 07/10/23
Home Medication Changes
All medications except Mucinex DM are new
Pending Results: No
--- NOTE | 2023-07-10 10:12 | W.PN.ID1 ---
Date of Service
Date of Service: July 10, 2023
Today's Communication
- switch to keflex to continue through 07/15 - week total course
Assessment / Plan
Fever - resolved
UTI
Phlebitis due to amiodarone infiltration
- 07/09 blood cultures listed as pending - if not done then no need at this point from my perspective
- switch to keflex to continue through 07/15 - week total course
- follow up with PCP
Chief Complaint
-: Fever
Subjective / Review of Systems
fever resolved
bp stable
no cbc or bmp this am
07/09 blood cultures listed as pending - if not done then no need at this point from my perspective
no complaints
Vital Signs / Physical Exam
Vital Signs
Vital Signs
Temp Pulse Resp BP Pulse Ox
99.6 F 78 20 142/70 87
07/10/23 05:18 07/10/23 08:49 07/10/23 05:18 07/10/23 08:49 07/10/23 05:18
Physical Exam
Constitutional: No Acute Distress and Chronically Ill
Cardiovascular: Regular Rate and S1/S2; Negative Murmur or Rub
Pulmonary: Clear and Symmetric; Negative Wheezes or Rales
Gastrointestinal: Soft, Non Tender, Non Distended and Normal Bowel Sounds
Skin: Warm, Dry and Rash (mild resolving phlebitis of the LUE); Negative Jaundice
Objective Data
Lab Data
Lab Results
07/09/23 04:37
07/08/23 04:10
APTT 34.2 Sec (23.4-35.0) 07/05/23 09:24
Estimated Creat Clear 26 ml/min 07/08/23 04:10
Lactic Acid 1.1 mmol/L (0.7-2.0) 07/03/23 07:44
Total Bilirubin 1.2 mg/dl (0.2-1.3) 07/05/23 02:18
AST 31 U/L (17-59) 07/05/23 02:18
ALT 13 U/L (0-50) 07/05/23 02:18
Alkaline Phosphatase 29 U/L (38-126) L 07/05/23 02:18
Most recent labs reviewed.
Micro Results:
07/02/23 20:09 Blood Culture - Final
Blood/Venous Klebsiella pneumoniae
Gram Stain - Final
07/04/23 10:07 Blood Culture - Final
Blood/Venous No Growth - Final Report
07/09/23 11:18 Blood Culture - Pending
Blood/Venous
07/09/23 10:41 Blood Culture - Pending
Blood/Venous
07/04/23 09:18 Blood Culture - Final
Blood/Venous No Growth - Final Report
07/04/23 00:50 Salmonella/Shigella Culture - Final
Feces/Stool No Salmonella, Shigella, Aeromonas or Plesiomonas species
isolated.
Campylobacter Culture - Final
No Campylobacter species isolated.
Shiga Toxin Test - Final
No E. coli Shiga Toxin 1 or 2 detected.
07/02/23 19:52 Blood Culture - Final
Blood/Venous Klebsiella pneumoniae
Gram Stain - Final
07/02/23 21:36 Urine Culture - Final
Urine Klebsiella pneumoniae
07/04/23 00:50 C. difficile GDH Antigen & Toxins - Final
Feces/Stool Negative for toxigenic C.difficile
- Final
Negative for Norovirus GI and GII.
07/03/23 00:30 MRSA Screen - Final
Nose No Methicillin Resistant Staphylococcus aureus isolated.
07/02/23 19:52 Influenza Types A & B ([facility]) - Final
Nasal Swab Negative for Influenza A & B, NAAT
Negative results must be combined with clinical observations
and patient history.
Nucleic Acid Amplification test (NAAT)performed on the
[employer] NOW platform.
[2023-07-10 10:47] VITALS: BP 144/74
--- NOTE | 2023-07-10 11:15 | VATNOTE ---
Vat rounds: left arm continues with redness. Patient stated that 'swelling has gone down'. Cool compress applied. will alternate cool to warm. Primary RN made aware. will continue to monitor closely.
--- NOTE | 2023-07-10 14:12 | CM ---
Reviewed chart. Sent clinical to [facility] for SNF/Rehab. at [facility]. Asked [facility] for [employer] exemption. Rdeceived telephone call back from Michelle with auth. SNF. SNF Auth number for [facility] is [id number] from 07/10/23 to 07/12/23
with NRD on 07/12/23 with Alaina Frausto, Fax( [phone]) and phone number is ([phone].). Updated [facility] Admissions with auth and updated son. Son is well aware of the having to pay privately for his stay. Unit Sec. made wheel chair
van arrangements with [facility]. Spoke with son regarding wheelchair payment of $80.00. He will call [facility] with payment. The telephone number for [facility] 4th floor, ([phone]) and fax number is ([phone]). Medical work-up in
progress. The discharge plan is to go to [facility] when medically stable.
[2023-07-10] MEDS: PREVNAR 20 0.5 ML IM (15:19)
--- NOTE | 2023-07-10 15:51 | PTCARENOTE ---
report called to francine barkley RN. 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
--- NOTE | 2023-07-10 16:19 | W.DCSUMMARY ---
Discharge Summary
Discharge Data
Date of Admission: 07/02/23
Date of Discharge: 07/10/23
-
Pending Results: No
Hospital Course
Primary diagnosis:
Klebsiella pneumonia bacteremic urinary tract infection secondary to chronic Flanagan catheter
Severe prostatic enlargement
Septic shock
Left arm amiodarone infiltration and possible cellulitis/thrombophlebitis
Newly diagnosed paroxysmal atrial fibrillation
Acute kidney disease on chronic kidney disease stage IIIb
Heme positive stools
Non-[place] troponin elevation
Acute thrombocytopenia which resolved
Secondary diagnosis:
Essential hypertension
Chronic kidney retention with Flanagan catheter in situ
Dementia of unknown type
Hospital course:
Patient presents with generalized weakness, poor oral intake and clinical dehydration and diagnosed to have Klebsiella pneumonia bacteremic UTI. He has chronic Flanagan catheter and there were questions about complaints of changing it regularly. He
was seen by urology who recommended to continue to use the catheter history of prostatomegaly.
He had associated septic shock which all resolved with antibiotic treatment.
During this episode he also developed a paroxysmal atrial fibrillation for which he was seen by cardiology who initiated initially on IV amiodarone switched to oral amiodarone with a loading and taper on discharge. He was also felt to be high risk
for stroke was started on Eliquis.
He had a IV infiltration of amiodarone in the left arm. He also had a possible cellulitis versus thrombophlebitis in the left arm. There was a nonocclusive DVT in the left arm but he was already on anticoagulation. Cephalexin was recommended to
be continued on discharge for 4 more days.
There was a heme positive stools without GI bleeds unclear it was hemorrhoidal. Was seen by GI. He remained stable with hemoglobin while on anticoagulation.
Once medically stable he was discharged to rehab.
Consultants on board:
Infectious disease-Miller Cates
Cardiology-Nii Saunders
Nephrology-Lupe Lemus
UrologSeda Cramer Dr.
Discharge Plan
-
Patient Disposition: Longterm/SNF
Discharge Diagnosis/Procedures: Catheter directed Klebsiella pneumoniae bacteremic UTI;New parox afib, MILTON on CKD, left arm thrombophlebitis/cellulitis; left arm amiodarone infiltration
Diet: Low Cholesterol
Activity: As tolerated
Driving Restrictions: No driving
Bathing Restrictions: None
Blood Work: CBC, BMP in one week
Other Services: PT
Specialty Instructions: Weigh Daily- Call MD for wt gain/loss 3 lbs overnight/5 lbs in 1 week
Referrals:
Mariella Mock CRNP [Specified Professional Personl] - 07/25/23 10:40 am
Gil Ye MD [Active] - (call dr wiggins [phone] to set up1 month appt also ash have a catherter it needs changing every month with either magno or dr ye but every month!)
Flash Sharma DO [Family Provider] -
Prescriptions:
New
Eliquis 2.5 mg Tablet
2.5 mg PO BID Qty: 1 0RF
amiodarone [Pacerone] 200 mg Tablet
400 mg PO BID Qty: 1 0RF
Rx Instructions:
400mg BID *3 more days then
200MG BID * 7 days then
200MG daily maintenance
pantoprazole 40 mg Tablet,Delayed Release (/Ec)
40 mg PO BID Qty: 1 0RF
Rx Instructions:
for a month and stop
finasteride 5 mg Tablet
5 mg PO DAILY Qty: 1 0RF
cephalexin 500 mg Capsule
500 mg PO BID Qty: 1 0RF
Rx Instructions:
till 07/15
Continued
dextromethorphan-guaifenesin [Mucinex DM] 60-1,200 mg Tablet Extended Release 12 Hr
1 tab PO DAILYPRN PRN (Reason: congestion)
Discharge Orders:
Discharge Patient (As Directed); Ordered 07/10/23
Ordered By: Yonis Copeland
Care Plan Goals
Care Plan Goals:
Problem: Readiness for enhanced knowledge related to diagnosis and treatment plan
Goal: Understand your diagnosis and treatment plan needs, including medications if applicable.
Instructions: Know your diagnosis, underlying causes and treatment plan options, including medications if applicable. Consult with your health care team to learn about your diagnosis and treatment plan, including medications if applicable.
--- NOTE | 2023-07-10 17:10 | PTCARENOTE ---
pt d/c to [facility]. pt left with belongings from room. pt left with acute care in a wheelchair van. pt left with belongings from room and educational material. iv and tele removed.
== END 2023-07-10 17:11 | DRG 698 ==
LOC: IVU 21:19
PROVIDERS: Hospitalist; Nurse Practitioner; Nurse Practitioner Family; Physician Assistant Medical; ADMITTING PHYSICIAN Internal Medicine; ATTENDING PHYSICIAN Internal Medicine; CONSULT PHYSICIAN Internal Medicine Cardiovascular Disease; CONSULT PHYSICIAN Specialist; CONSULT PHYSICIAN Student in an Organized Health Care Education/Training Program; EMERGENCY PHYSICIAN Student in an Organized Health Care Education/Training Program; FAMILY PHYSICIAN Internal Medicine; OTHER PHYSICIAN Specialist; OTHER PHYSICIAN Student in an Organized Health Care Education/Training Program
PROC: 3E033RZ Introduction of Antiarrhythmic into Peripheral Vein, Percutaneous Approach (ICD-10-PCS; 2023-07-02)
PROC: 3E0234Z Introduction of Serum, Toxoid and Vaccine into Muscle, Percutaneous Approach (ICD-10-PCS; 2023-07-10)
DX: T83.511A Infection and inflammatory reaction due to indwelling urethral catheter, initial encounter (principal); A41.59 Other Gram-negative sepsis; N17.0 Acute kidney failure with tubular necrosis; R65.21 Severe sepsis with septic shock; E87.20 Acidosis, unspecified; N13.6 Pyonephrosis; I5A Non-ischemic myocardial injury (non-traumatic); J90 Pleural effusion, not elsewhere classified; E87.1 Hypo-osmolality and hyponatremia; D62 Acute posthemorrhagic anemia; K92.2 Gastrointestinal hemorrhage, unspecified; L03.114 Cellulitis of left upper limb; I82.622 Acute embolism and thrombosis of deep veins of left upper extremity; N39.0 Urinary tract infection, site not specified; I12.9 Hypertensive chronic kidney disease with stage 1 through stage 4 chronic kidney disease, or unspecified chronic kidney disease; E86.0 Dehydration; R33.8 Other retention of urine; N40.1 Benign prostatic hyperplasia with lower urinary tract symptoms; I48.0 Paroxysmal atrial fibrillation; B96.1 Klebsiella pneumoniae [K. pneumoniae] as the cause of diseases classified elsewhere; Y73.2 Prosthetic and other implants, materials and accessory gastroenterology and urology devices associated with adverse incidents; Y92.9 Unspecified place or not applicable; R19.7 Diarrhea, unspecified; I45.10 Unspecified right bundle-branch block; N18.32 Chronic kidney disease, stage 3b; F03.90 Unspecified dementia, unspecified severity, without behavioral disturbance, psychotic disturbance, mood disturbance, and anxiety; N32.89 Other specified disorders of bladder; N32.0 Bladder-neck obstruction; E87.6 Hypokalemia; L89.151 Pressure ulcer of sacral region, stage 1; D69.6 Thrombocytopenia, unspecified; R91.1 Solitary pulmonary nodule; K44.9 Diaphragmatic hernia without obstruction or gangrene; Z23 Encounter for immunization; Z11.52 Encounter for screening for COVID-19
CPT/HCPCS: 71045; 74176; 76770; 80048; 80053; 81003; 81015; 82436; 83605; 83735; 84133; 84300; 84443; 84484; 85025; 85027; 85730; 87040; 87045; 87046; 87070; 87077; 87086; 87149; 87186; 87205; 87324; 87427; 87449; 87502; 87798; 87811; 90677; 93005; 93306; 93971; 96361; 96365; 97116; 97163; 97167; 97530; 97535; 99285; G0009